=== PATIENT | female | born 1940 | race Asian ===

== ENCOUNTER 2018-06-28 15:51 | Inpatient (IN) | payer MEDICARE, OTHER ==
[2018-06-28 19:41] LABS: ADD MAN DIFF? NO
[2018-06-28 19:42] LABS: WHITE BLOOD COUNT 6.1 10^3/ul (4.8-10.8)
[2018-06-28 19:42] LABS: BASOPHILS % 0.3 % (0.0-2.0); EOSINOPHILS % 0.7 % (0.0-7.0); HEMATOCRIT 29.9 % (37.0-47.0); LYMPHOCYTES # 0.6 10^3/ul (0.8-2.9); LYMPHOCYTES % 10.4 % (15.0-51.0); MEAN CORPUSCULAR HGB CONC 30.1 g/dl (32.0-37.0); MEAN CORPUSCULAR VOLUME 96.5 fl (82.0-101.0); MONOCYTE # 0.8 10^3/ul (0.3-0.9); MONOCYTES % 12.7 % (0.0-11.0); NEUTROPHIL # 4.6 10^3/ul (1.6-7.5); NEUTROPHILS % 75.6 % (39.0-77.0); PLATELET COUNT 255 10^3/UL (140-415); RED CELL DISTRIBUTION WIDTH 13.4 % (11.5-14.5)
[2018-06-28] MEDS: SOD CHLORIDE 0.9% 1,770 ML IV (19:46)
[2018-06-28 19:59] LABS: ALANINE AMINOTRANSFERASE 7 IU/L (13-69); ALKALINE PHOSPHATASE 115 IU/L (42-121); ANION GAP 8 (5-13); ASPARTATE AMINO TRANSFERASE 54 IU/L (15-46); BLOOD UREA NITROGEN 49 mg/dl (7-20); CALCIUM 9.4 mg/dl (8.4-10.2); CARBON DIOXIDE 26 mmol/L (21-31); CHLORIDE 104 mmol/L (97-110); GLUCOSE 107 mg/dl (70-220); POTASSIUM 4.4 mmol/L (3.5-5.1); SODIUM 138 mmol/L (135-144)
[2018-06-28 20:00] LABS: TOTAL PROTEIN 7.3 g/dl (6.1-8.1)
[2018-06-28 20:10] LABS: ALBUMIN/GLOBULIN RATIO 1.21
[2018-06-28 20:13] LABS: TROPONIN-I 0.154 ng/ml (0.000-0.120)
[2018-06-28 20:39] LABS: FREE THYROXINE INDEX (Calc) 2.48 ug/ml (0.65-3.89); T3 UPTAKE 33.1 % (23.5-40.5); T4 (THYROXINE) 7.5 ug/dl (5.5-11.0)
[2018-06-28 20:51] LABS: ADD UMIC YES; UR ASCORBIC ACID 40 mg/dL (NEGATIVE); UR BILIRUBIN (Dip) NEGATIVE (NEGATIVE); UR BLOOD (Dip) NEGATIVE (NEGATIVE); UR CLARITY SLIGHTLY CLOUDY (CLEAR); UR COLOR YELLOW (YELLOW); UR GLUCOSE (Dip) NEGATIVE (NEGATIVE); UR KETONES (Dip) TRACE mg/dL (NEGATIVE); UR LEUKOCYTE ESTERASE (Dip) TRACE Leu/ul (NEGATIVE); UR MUCUS FEW /HPF (NONE SEEN); UR NITRITE (Dip) NEGATIVE (NEGATIVE); UR RBC 2 /HPF (0-5); UR SPECIFIC GRAVITY (Dip) 1.018 (1.003-1.030); UR TOTAL PROTEIN (Dip) NEGATIVE (NEGATIVE); UR UROBILINOGEN (Dip) 1+ mg/dL (NEGATIVE); UR WBC 8 /HPF (0-5)
[2018-06-28] MEDS: SOD CHLORIDE 0.9% 1,000 ML IV (20:52)
[2018-06-28] MEDS ORDERED: ACETAMINOPHEN 325 MG TAB PO (21:00)
[2018-06-28] MEDS ORDERED: NITROGLYCERIN (SL) 0.4 MG TAB SL (21:00)
[2018-06-28] MEDS ORDERED: BISACODYL (EC) 5 MG TAB PO (21:00)
[2018-06-28] MEDS ORDERED: ONDANSETRON 4 MG INJ IV (21:00)
[2018-06-28] MEDS ORDERED: NACL 0.9% 3 ML SYG IV (21:00)
[2018-06-28] MEDS ORDERED: DOCUSATE SODIUM 100 MG CAP PO (21:00)
[2018-06-28] MEDS: ASPIRIN 81 MG TAB PO (21:05)
[2018-06-28] MEDS: PRAMIPEXOLE 1 MG TAB PO (22:30)
[2018-06-28] MEDS: ATORVASTATIN 10 MG TAB PO (22:33)
[2018-06-28] MEDS: CARBIDOPA/LEVODOPA (25/100) TAB PO (22:34)
[2018-06-28] MEDS: HEPARIN 5,000 UNIT/1 ML VIAL SC (23:15)
[2018-06-28] MEDS: CEFTRIAXONE 1 GM/50 ML (PMX) 50 ML IVPB (23:40)
[2018-06-28 23:45] LABS: LACTIC ACID 1.1 mmol/L (0.5-2.0)
[2018-06-29 00:11] LABS: INR 0.96; PROTIME 12.9 Sec (11.9-14.9)
[2018-06-29 00:12] LABS: PARTIAL THROMBOPLASTIN TIME 33.5 Sec (23.0-35.0)
[2018-06-29] MEDS: SOD CHLORIDE 0.9% 1,000 ML IV ×2 (00:30→13:10)
[2018-06-29] MEDS: IOHEXOL 14.3 MG(I)/ML (ADULT) BTL PO (00:30)
[2018-06-29] MEDS: IODIXANOL LOCM 100 ML BTL (00:44)
[2018-06-29] MEDS: SOD CHLORIDE 0.9% 100 ML (00:44)
[2018-06-29 01:08] LABS: ADD MAN DIFF? NO; BASOPHILS % 0.3 % (0.0-2.0); EOSINOPHILS # 0.1 10^3/ul (0.0-0.5); EOSINOPHILS % 1.5 % (0.0-7.0); HEMATOCRIT 26.4 % (37.0-47.0); HEMOGLOBIN 7.9 g/dl (12.0-16.0); LYMPHOCYTES # 0.7 10^3/ul (0.8-2.9); LYMPHOCYTES % 11.7 % (15.0-51.0); MEAN CORPUSCULAR HEMOGLOBIN 29.4 pg (29.0-33.0); MEAN CORPUSCULAR HGB CONC 29.9 g/dl (32.0-37.0); MEAN CORPUSCULAR VOLUME 98.1 fl (82.0-101.0); MEAN PLATELET VOLUME 8.9 fl (7.4-10.4); MONOCYTE # 0.8 10^3/ul (0.3-0.9); MONOCYTES % 14.1 % (0.0-11.0); NEUTROPHIL # 4.2 10^3/ul (1.6-7.5); NEUTROPHILS % 72.2 % (39.0-77.0); PLATELET COUNT 224 10^3/UL (140-415); RED BLOOD COUNT 2.69 10^6/ul (4.20-5.40); RED CELL DISTRIBUTION WIDTH 13.4 % (11.5-14.5)
[2018-06-29 01:08] LABS: WHITE BLOOD COUNT 5.9 10^3/ul (4.8-10.8)
[2018-06-29 01:34] LABS: CREATINE KINASE 319 IU/L (23-200)
[2018-06-29 01:46] LABS: CK INDEX 0.9; CK-MB 2.91 ng/ml (0.0-2.4)
[2018-06-29 01:54] LABS: TROPONIN-I 0.147 ng/ml (0.000-0.120)
[2018-06-29 04:51] LABS: ADD MAN DIFF? NO
[2018-06-29 04:55] LABS: WHITE BLOOD COUNT 4.6 10^3/ul (4.8-10.8)
[2018-06-29 04:55] LABS: BASOPHILS % 0.4 % (0.0-2.0); EOSINOPHILS # 0.1 10^3/ul (0.0-0.5); EOSINOPHILS % 1.7 % (0.0-7.0); HEMATOCRIT 27.8 % (37.0-47.0); HEMOGLOBIN 8.5 g/dl (12.0-16.0); LYMPHOCYTES # 0.7 10^3/ul (0.8-2.9); LYMPHOCYTES % 14.4 % (15.0-51.0); MEAN CORPUSCULAR HEMOGLOBIN 29.5 pg (29.0-33.0); MEAN CORPUSCULAR HGB CONC 30.6 g/dl (32.0-37.0); MEAN CORPUSCULAR VOLUME 96.5 fl (82.0-101.0); MEAN PLATELET VOLUME 8.7 fl (7.4-10.4); MONOCYTE # 0.5 10^3/ul (0.3-0.9); MONOCYTES % 11.5 % (0.0-11.0); NEUTROPHIL # 3.3 10^3/ul (1.6-7.5); NEUTROPHILS % 71.8 % (39.0-77.0); PLATELET COUNT 236 10^3/UL (140-415); RED BLOOD COUNT 2.88 10^6/ul (4.20-5.40); RED CELL DISTRIBUTION WIDTH 13.2 % (11.5-14.5)
[2018-06-29 05:15] LABS: INR 0.92; PROTIME 12.5 Sec (11.9-14.9)
[2018-06-29 05:16] LABS: PARTIAL THROMBOPLASTIN TIME 35.9 Sec (23.0-35.0)
[2018-06-29 05:44] LABS: ALANINE AMINOTRANSFERASE 8 IU/L (13-69); ALBUMIN 3.3 g/dl (3.3-4.9); ALBUMIN/GLOBULIN RATIO 1.13; ALKALINE PHOSPHATASE 110 IU/L (42-121); ANION GAP 7 (5-13); ASPARTATE AMINO TRANSFERASE 41 IU/L (15-46); BLOOD UREA NITROGEN 33 mg/dl (7-20); CALCIUM 8.8 mg/dl (8.4-10.2); CARBON DIOXIDE 23 mmol/L (21-31); CHLORIDE 111 mmol/L (97-110); CHOL/HDL RATIO 2.1 RATIO; CHOLESTEROL 124 mg/dl (100-200); CREATININE 1.14 mg/dl (0.44-1.00); GLUCOSE 89 mg/dl (70-220); HDL CHOLESTEROL 57 mg/dl (33-92); LDL CHOLESTEROL,CALCULATED 44 mg/dl; POTASSIUM 4.2 mmol/L (3.5-5.1); SODIUM 141 mmol/L (135-144); TOTAL PROTEIN 6.2 g/dl (6.1-8.1); TRIGLYCERIDES 116 mg/dl (0-149)
[2018-06-29 05:48] LABS: CREATINE KINASE 335 IU/L (23-200)
[2018-06-29 05:52] LABS: CK-MB 3.29 ng/ml (0.0-2.4)
[2018-06-29] MEDS: hydrALAzine 20 MG INJ IV (06:13)
[2018-06-29 06:15] LABS: HEMOGLOBIN A1C 6.1 % (0-5.9)
[2018-06-29] MEDS: PRAMIPEXOLE 1 MG TAB PO (10:00)
[2018-06-29 10:01] LABS: ADD MAN DIFF? NO
[2018-06-29] MEDS: CARBIDOPA/LEVODOPA (25/100) TAB PO ×4 (10:01→20:48)
[2018-06-29] MEDS: AMLODIPINE 5 MG TAB PO (10:01)
[2018-06-29 10:05] LABS: BASOPHILS % 0.3 % (0.0-2.0); EOSINOPHILS # 0.1 10^3/ul (0.0-0.5); EOSINOPHILS % 0.9 % (0.0-7.0); HEMATOCRIT 29.4 % (37.0-47.0); LYMPHOCYTES # 0.6 10^3/ul (0.8-2.9); LYMPHOCYTES % 11.2 % (15.0-51.0); MEAN CORPUSCULAR HEMOGLOBIN 29.1 pg (29.0-33.0); MEAN CORPUSCULAR HGB CONC 30.6 g/dl (32.0-37.0); MEAN CORPUSCULAR VOLUME 95.1 fl (82.0-101.0); MEAN PLATELET VOLUME 8.9 fl (7.4-10.4); MONOCYTE # 0.6 10^3/ul (0.3-0.9); MONOCYTES % 10.5 % (0.0-11.0); NEUTROPHIL # 4.4 10^3/ul (1.6-7.5); NEUTROPHILS % 76.9 % (39.0-77.0); PLATELET COUNT 256 10^3/UL (140-415); RED BLOOD COUNT 3.09 10^6/ul (4.20-5.40); RED CELL DISTRIBUTION WIDTH 13.3 % (11.5-14.5)
[2018-06-29 10:05] LABS: WHITE BLOOD COUNT 5.7 10^3/ul (4.8-10.8)
[2018-06-29] MEDS: SOD CHLORIDE 0.9% 500 ML IV (10:05)
[2018-06-29 10:24] LABS: INR 0.93; PROTIME 12.6 Sec (11.9-14.9)
[2018-06-29 10:25] LABS: PARTIAL THROMBOPLASTIN TIME 34.1 Sec (23.0-35.0)
[2018-06-29 14:02] LABS: ADD MAN DIFF? NO
[2018-06-29 14:04] LABS: WHITE BLOOD COUNT 5.9 10^3/ul (4.8-10.8)
[2018-06-29 14:04] LABS: BASOPHILS % 0.3 % (0.0-2.0); EOSINOPHILS # 0.1 10^3/ul (0.0-0.5); HEMATOCRIT 30.9 % (37.0-47.0); HEMOGLOBIN 9.6 g/dl (12.0-16.0); LYMPHOCYTES # 0.7 10^3/ul (0.8-2.9); LYMPHOCYTES % 11.8 % (15.0-51.0); MEAN CORPUSCULAR HEMOGLOBIN 29.5 pg (29.0-33.0); MEAN CORPUSCULAR HGB CONC 31.1 g/dl (32.0-37.0); MEAN CORPUSCULAR VOLUME 95.1 fl (82.0-101.0); MEAN PLATELET VOLUME 8.7 fl (7.4-10.4); MONOCYTE # 0.5 10^3/ul (0.3-0.9); MONOCYTES % 8.8 % (0.0-11.0); NEUTROPHIL # 4.6 10^3/ul (1.6-7.5); NEUTROPHILS % 77.8 % (39.0-77.0); PLATELET COUNT 253 10^3/UL (140-415); RED BLOOD COUNT 3.25 10^6/ul (4.20-5.40); RED CELL DISTRIBUTION WIDTH 13.4 % (11.5-14.5)
[2018-06-29 14:21] LABS: INR 0.89; PROTIME 12.1 Sec (11.9-14.9); PT RATIO 0.9
[2018-06-29 14:22] LABS: PARTIAL THROMBOPLASTIN TIME 33.2 Sec (23.0-35.0)
[2018-06-29] MEDS: ATORVASTATIN 10 MG TAB PO (20:48)
[2018-06-30 05:21] LABS: ADD MAN DIFF? NO
[2018-06-30 05:22] LABS: BASOPHILS % 0.2 % (0.0-2.0); EOSINOPHILS % 0.7 % (0.0-7.0); HEMATOCRIT 28.8 % (37.0-47.0); HEMOGLOBIN 9.1 g/dl (12.0-16.0); LYMPHOCYTES # 0.7 10^3/ul (0.8-2.9); LYMPHOCYTES % 11.4 % (15.0-51.0); MEAN CORPUSCULAR HEMOGLOBIN 29.8 pg (29.0-33.0); MEAN CORPUSCULAR HGB CONC 31.6 g/dl (32.0-37.0); MEAN CORPUSCULAR VOLUME 94.4 fl (82.0-101.0); MEAN PLATELET VOLUME 8.9 fl (7.4-10.4); MONOCYTE # 0.9 10^3/ul (0.3-0.9); MONOCYTES % 14.4 % (0.0-11.0); NEUTROPHIL # 4.4 10^3/ul (1.6-7.5); PLATELET COUNT 241 10^3/UL (140-415); RED BLOOD COUNT 3.05 10^6/ul (4.20-5.40); RED CELL DISTRIBUTION WIDTH 13.4 % (11.5-14.5)
[2018-06-30 05:56] LABS: MAGNESIUM 1.9 mg/dl (1.7-2.5)
[2018-06-30 05:56] LABS: PHOSPHORUS 3.5 mg/dl (2.5-4.9)
[2018-06-30 06:04] LABS: ALANINE AMINOTRANSFERASE 9 IU/L (13-69); ALBUMIN 3.6 g/dl (3.3-4.9); ALBUMIN/GLOBULIN RATIO 1.05; ALKALINE PHOSPHATASE 113 IU/L (42-121); ANION GAP 7 (5-13); ASPARTATE AMINO TRANSFERASE 45 IU/L (15-46); BILIRUBIN,INDIRECT 0.1 mg/dl (0-1.1); BILIRUBIN,TOTAL 0.1 mg/dl (0.2-1.3); BLOOD UREA NITROGEN 20 mg/dl (7-20); CALCIUM 9.3 mg/dl (8.4-10.2); CARBON DIOXIDE 25 mmol/L (21-31); CHLORIDE 107 mmol/L (97-110); GLUCOSE 95 mg/dl (70-220); POTASSIUM 3.9 mmol/L (3.5-5.1); SODIUM 139 mmol/L (135-144)
[2018-06-30] MEDS: PRAMIPEXOLE 1 MG TAB PO (08:59)
[2018-06-30] MEDS: AMLODIPINE 5 MG TAB PO (09:00)
[2018-06-30] MEDS: CARBIDOPA/LEVODOPA (25/100) TAB PO ×4 (09:00→20:36)
[2018-06-30] MEDS: ACETAMINOPHEN 325 MG TAB PO ×2 (09:01→20:36)
[2018-06-30 10:22] LABS: TROPONIN-I 0.072 ng/ml (0.000-0.120)
[2018-06-30 11:06] LABS: HEPATITIS B SURFACE ANTIGEN NEGATIVE (NEGATIVE)
[2018-06-30 11:24] LABS: HEPATITIS B SURFACE ANTIBODY POSITIVE (NEGATIVE)
[2018-06-30 11:24] LABS: HEPATITIS C VIRAL ANTIBODY NEGATIVE (NEGATIVE)
[2018-06-30 11:45] LABS: IRON 29 ug/dl (35-150)
[2018-06-30 11:54] LABS: % IRON SATURATION 9 % SAT (22-52); TOTAL IRON BINDING CAPACITY 309 ug/dl (241-421)
[2018-06-30 13:28] LABS: FERRITIN 25.8 ng/ml (11.1-264.0)
[2018-06-30] MEDS: ATORVASTATIN 10 MG TAB PO (20:36)
[2018-06-30 21:34] LABS: LACTIC ACID 0.9 mmol/L (0.5-2.0)
[2018-06-30] MEDS ORDERED: VANCOMYCIN IV PER PHARMACY XX (23:00)
[2018-07-01] MEDS: PIPER-TAZO 3.375 GM IV (PMX) 100 ML IVPB ×5 (00:09→23:01)
[2018-07-01] MEDS: VANCOMYCIN HCL 1.25 GM in SOD CHLORIDE 0.9% 250 ML IVPB (01:12)
[2018-07-01 05:26] LABS: ADD MAN DIFF? NO
[2018-07-01 05:33] LABS: ABNORMAL IP MESSAGE 1; BASOPHILS % 0.2 % (0.0-2.0); EOSINOPHILS % 0.2 % (0.0-7.0); HEMOGLOBIN 8.9 g/dl (12.0-16.0); LYMPHOCYTES # 0.6 10^3/ul (0.8-2.9); MEAN CORPUSCULAR HEMOGLOBIN 29.9 pg (29.0-33.0); MEAN CORPUSCULAR HGB CONC 31.8 g/dl (32.0-37.0); MEAN PLATELET VOLUME 8.9 fl (7.4-10.4); MONOCYTE # 1.2 10^3/ul (0.3-0.9); MONOCYTES % 14.7 % (0.0-11.0); NEUTROPHIL # 6.5 10^3/ul (1.6-7.5); NEUTROPHILS % 77.5 % (39.0-77.0); PLATELET COUNT 241 10^3/UL (140-415); RED BLOOD COUNT 2.98 10^6/ul (4.20-5.40); RED CELL DISTRIBUTION WIDTH 13.3 % (11.5-14.5)
[2018-07-01 05:33] LABS: WHITE BLOOD COUNT 8.3 10^3/ul (4.8-10.8)
[2018-07-01 05:56] LABS: POSITIVE DIFF @See below
[2018-07-01 06:19] LABS: ALANINE AMINOTRANSFERASE 9 IU/L (13-69); ALBUMIN 3.5 g/dl (3.3-4.9); ALBUMIN/GLOBULIN RATIO 0.97; ALKALINE PHOSPHATASE 102 IU/L (42-121); ANION GAP 5 (5-13); ASPARTATE AMINO TRANSFERASE 35 IU/L (15-46); BILIRUBIN,INDIRECT 0.2 mg/dl (0-1.1); BILIRUBIN,TOTAL 0.2 mg/dl (0.2-1.3); BLOOD UREA NITROGEN 20 mg/dl (7-20); CALCIUM 9.1 mg/dl (8.4-10.2); CARBON DIOXIDE 26 mmol/L (21-31); CHLORIDE 108 mmol/L (97-110); CREATININE 1.21 mg/dl (0.44-1.00); GLUCOSE 113 mg/dl (70-220); POTASSIUM 3.7 mmol/L (3.5-5.1); SODIUM 139 mmol/L (135-144); TOTAL PROTEIN 7.1 g/dl (6.1-8.1)
[2018-07-01] MEDS: PRAMIPEXOLE 1 MG TAB PO (08:12)
[2018-07-01] MEDS: CARBIDOPA/LEVODOPA (25/100) TAB PO ×4 (08:12→20:04)
[2018-07-01] MEDS: AMLODIPINE 5 MG TAB PO (08:13)
[2018-07-01] MEDS: SOD CHLORIDE 0.9% 1,000 ML IV ×2 (10:54→19:55)
[2018-07-01 13:21] LABS: ADD UMIC YES; UR ASCORBIC ACID NEGATIVE (NEGATIVE); UR BACTERIA MODERATE /HPF (NONE SEEN); UR BILIRUBIN (Dip) NEGATIVE (NEGATIVE); UR BLOOD (Dip) 2+ mg/dL (NEGATIVE); UR BUDDING YEAST MANY /HPF (NONE SEEN); UR CLARITY CLOUDY (CLEAR); UR COLOR AMBER (YELLOW); UR GLUCOSE (Dip) NEGATIVE (NEGATIVE); UR KETONES (Dip) TRACE mg/dL (NEGATIVE); UR LEUKOCYTE ESTERASE (Dip) 3+ Leu/ul (NEGATIVE); UR MUCUS MANY /HPF (NONE SEEN); UR NITRITE (Dip) NEGATIVE (NEGATIVE); UR RBC 40 /HPF (0-5); UR SPECIFIC GRAVITY (Dip) 1.025 (1.003-1.030); UR SQUAMOUS EPITHELIAL CELL FEW /HPF (FEW); UR TOTAL PROTEIN (Dip) NEGATIVE (NEGATIVE); UR UROBILINOGEN (Dip) NEGATIVE (NEGATIVE); UR WBC 14 /HPF (0-5)
[2018-07-01 14:36] LABS: CARCINOEMBRYONIC ANTIGEN 6.3 ng/ml (0.0-5.0)
[2018-07-01 14:36] LABS: CANCER ANTIGEN 125 39.9 U/ml (0.0-35.0)
[2018-07-01 14:40] LABS: CANCER ANTIGEN 19-9 11.7 U/ml (0.0-37.0)
[2018-07-01] MEDS: ATORVASTATIN 10 MG TAB PO (20:04)
[2018-07-02] MEDS: PIPER-TAZO 3.375 GM IV (PMX) 100 ML IVPB ×3 (05:20→17:25)
[2018-07-02] MEDS: SOD CHLORIDE 0.9% 1,000 ML IV ×2 (05:32→16:17)
[2018-07-02 06:17] LABS: ADD MAN DIFF? NO
[2018-07-02 06:22] LABS: BASOPHILS % 0.3 % (0.0-2.0); EOSINOPHILS # 0.1 10^3/ul (0.0-0.5); EOSINOPHILS % 1.5 % (0.0-7.0); HEMATOCRIT 28.8 % (37.0-47.0); HEMOGLOBIN 8.8 g/dl (12.0-16.0); LYMPHOCYTES # 0.7 10^3/ul (0.8-2.9); LYMPHOCYTES % 10.6 % (15.0-51.0); MEAN CORPUSCULAR HEMOGLOBIN 28.9 pg (29.0-33.0); MEAN CORPUSCULAR HGB CONC 30.6 g/dl (32.0-37.0); MEAN CORPUSCULAR VOLUME 94.7 fl (82.0-101.0); MEAN PLATELET VOLUME 8.6 fl (7.4-10.4); MONOCYTES % 14.9 % (0.0-11.0); NEUTROPHIL # 4.9 10^3/ul (1.6-7.5); NEUTROPHILS % 72.3 % (39.0-77.0); PLATELET COUNT 242 10^3/UL (140-415); RED BLOOD COUNT 3.04 10^6/ul (4.20-5.40)
[2018-07-02 06:22] LABS: WHITE BLOOD COUNT 6.8 10^3/ul (4.8-10.8)
[2018-07-02 06:51] LABS: ALANINE AMINOTRANSFERASE 6 IU/L (13-69); ALBUMIN 3.5 g/dl (3.3-4.9); ALKALINE PHOSPHATASE 107 IU/L (42-121); ANION GAP 9 (5-13); ASPARTATE AMINO TRANSFERASE 32 IU/L (15-46); BILIRUBIN,INDIRECT 0.3 mg/dl (0-1.1); BILIRUBIN,TOTAL 0.3 mg/dl (0.2-1.3); BLOOD UREA NITROGEN 15 mg/dl (7-20); CARBON DIOXIDE 25 mmol/L (21-31); CHLORIDE 106 mmol/L (97-110); GLUCOSE 98 mg/dl (70-220); POTASSIUM 3.6 mmol/L (3.5-5.1); SODIUM 140 mmol/L (135-144)
[2018-07-02 06:53] LABS: PHOSPHORUS 3.3 mg/dl (2.5-4.9)
[2018-07-02 06:53] LABS: MAGNESIUM 1.9 mg/dl (1.7-2.5)
[2018-07-02] MEDS: CARBIDOPA/LEVODOPA (25/100) TAB PO ×4 (08:18→20:34)
[2018-07-02] MEDS: AMLODIPINE 5 MG TAB PO (08:18)
[2018-07-02] MEDS: PRAMIPEXOLE 1 MG TAB PO (08:18)
[2018-07-02] MEDS: ACETAMINOPHEN 325 MG TAB PO (12:01)
[2018-07-02] MEDS: ATORVASTATIN 10 MG TAB PO (20:34)
[2018-07-03] MEDS: PIPER-TAZO 3.375 GM IV (PMX) 100 ML IVPB ×5 (00:35→23:29)
[2018-07-03] MEDS: SOD CHLORIDE 0.9% 1,000 ML IV ×3 (02:30→14:38)
[2018-07-03 05:15] LABS: ADD MAN DIFF? NO
[2018-07-03 05:23] LABS: ABNORMAL IP MESSAGE 1; BASOPHILS % 0.3 % (0.0-2.0); EOSINOPHILS # 0.1 10^3/ul (0.0-0.5); HEMATOCRIT 28.6 % (37.0-47.0); HEMOGLOBIN 8.8 g/dl (12.0-16.0); LYMPHOCYTES # 0.4 10^3/ul (0.8-2.9); LYMPHOCYTES % 6.1 % (15.0-51.0); MEAN CORPUSCULAR HEMOGLOBIN 29.2 pg (29.0-33.0); MEAN CORPUSCULAR HGB CONC 30.8 g/dl (32.0-37.0); MEAN PLATELET VOLUME 8.9 fl (7.4-10.4); MONOCYTE # 0.9 10^3/ul (0.3-0.9); MONOCYTES % 12.4 % (0.0-11.0); NEUTROPHIL # 5.7 10^3/ul (1.6-7.5); NEUTROPHILS % 79.9 % (39.0-77.0); PLATELET COUNT 268 10^3/UL (140-415); RED BLOOD COUNT 3.01 10^6/ul (4.20-5.40)
[2018-07-03 05:23] LABS: WHITE BLOOD COUNT 7.2 10^3/ul (4.8-10.8)
[2018-07-03 05:25] LABS: ALANINE AMINOTRANSFERASE 8 IU/L (13-69); ALBUMIN 3.5 g/dl (3.3-4.9); ALKALINE PHOSPHATASE 101 IU/L (42-121); ANION GAP 8 (5-13); ASPARTATE AMINO TRANSFERASE 39 IU/L (15-46); BILIRUBIN,INDIRECT 0.2 mg/dl (0-1.1); BILIRUBIN,TOTAL 0.2 mg/dl (0.2-1.3); BLOOD UREA NITROGEN 11 mg/dl (7-20); CALCIUM 8.8 mg/dl (8.4-10.2); CARBON DIOXIDE 26 mmol/L (21-31); CHLORIDE 105 mmol/L (97-110); CREATININE 1.05 mg/dl (0.44-1.00); GLUCOSE 117 mg/dl (70-220); POTASSIUM 3.5 mmol/L (3.5-5.1); SODIUM 139 mmol/L (135-144)
[2018-07-03 06:10] LABS: POSITIVE DIFF @See below
[2018-07-03] MEDS: FLUCONAZOLE 100 MG TAB PO (08:29)
[2018-07-03] MEDS: AMLODIPINE 5 MG TAB PO (08:30)
[2018-07-03] MEDS: CARBIDOPA/LEVODOPA (25/100) TAB PO ×4 (08:30→21:09)
[2018-07-03] MEDS: PRAMIPEXOLE 1 MG TAB PO (08:30)
[2018-07-03] MEDS: ACETAMINOPHEN 325 MG TAB PO ×2 (16:10→23:31)
[2018-07-03] MEDS: ATORVASTATIN 10 MG TAB PO (21:08)
[2018-07-04] MEDS: PIPER-TAZO 3.375 GM IV (PMX) 100 ML IVPB ×4 (05:29→23:29)
[2018-07-04] MEDS: SOD CHLORIDE 0.9% 1,000 ML IV (05:30)
[2018-07-04 05:57] LABS: ADD MAN DIFF? NO
[2018-07-04 06:14] LABS: BASOPHILS % 0.3 % (0.0-2.0); EOSINOPHILS # 0.1 10^3/ul (0.0-0.5); HEMATOCRIT 30.9 % (37.0-47.0); HEMOGLOBIN 9.6 g/dl (12.0-16.0); LYMPHOCYTES # 0.7 10^3/ul (0.8-2.9); LYMPHOCYTES % 9.3 % (15.0-51.0); MEAN CORPUSCULAR HGB CONC 31.1 g/dl (32.0-37.0); MEAN CORPUSCULAR VOLUME 93.4 fl (82.0-101.0); MEAN PLATELET VOLUME 8.9 fl (7.4-10.4); MONOCYTE # 1.1 10^3/ul (0.3-0.9); MONOCYTES % 15.3 % (0.0-11.0); NEUTROPHIL # 5.1 10^3/ul (1.6-7.5); NEUTROPHILS % 73.7 % (39.0-77.0); PLATELET COUNT 321 10^3/UL (140-415); RED BLOOD COUNT 3.31 10^6/ul (4.20-5.40); RED CELL DISTRIBUTION WIDTH 12.9 % (11.5-14.5)
[2018-07-04 06:27] LABS: MAGNESIUM 1.7 mg/dl (1.7-2.5)
[2018-07-04 06:27] LABS: PHOSPHORUS 3.3 mg/dl (2.5-4.9)
[2018-07-04 06:35] LABS: ALBUMIN 3.7 g/dl (3.3-4.9); ALBUMIN/GLOBULIN RATIO 0.94; ALKALINE PHOSPHATASE 106 IU/L (42-121); ANION GAP 10 (5-13); ASPARTATE AMINO TRANSFERASE 29 IU/L (15-46); BILIRUBIN,INDIRECT 0.4 mg/dl (0-1.1); BILIRUBIN,TOTAL 0.4 mg/dl (0.2-1.3); BLOOD UREA NITROGEN 9 mg/dl (7-20); CALCIUM 9.1 mg/dl (8.4-10.2); CARBON DIOXIDE 25 mmol/L (21-31); CHLORIDE 105 mmol/L (97-110); CREATININE 0.95 mg/dl (0.44-1.00); GLUCOSE 90 mg/dl (70-220); POTASSIUM 3.4 mmol/L (3.5-5.1); SODIUM 140 mmol/L (135-144); TOTAL PROTEIN 7.6 g/dl (6.1-8.1)
[2018-07-04 06:37] LABS: ALANINE AMINOTRANSFERASE < 6 IU/L (13-69)
[2018-07-04] MEDS: FLUCONAZOLE 100 MG TAB PO (07:50)
[2018-07-04] MEDS: PRAMIPEXOLE 1 MG TAB PO (07:50)
[2018-07-04] MEDS: ACETAMINOPHEN 325 MG TAB PO (07:50)
[2018-07-04] MEDS: CARBIDOPA/LEVODOPA (25/100) TAB PO ×4 (07:51→21:00)
[2018-07-04] MEDS: AMLODIPINE 5 MG TAB PO (07:51)
[2018-07-04] MEDS: POTASSIUM CHLORIDE (SR) 20 MEQ TAB PO (11:59)
[2018-07-04] MEDS: MAGNESIUM SULFATE 1 GM/D5W 100 ML IVPB (13:39)
[2018-07-04] MEDS: ATORVASTATIN 10 MG TAB PO (21:00)
[2018-07-04] MEDS: HYDROCODONE/APAP (5/325) TAB PO (23:28)
[2018-07-05] MEDS: PIPER-TAZO 3.375 GM IV (PMX) 100 ML IVPB ×4 (05:44→23:17)
[2018-07-05] MEDS: CARBIDOPA/LEVODOPA (25/100) TAB PO ×4 (08:32→21:07)
[2018-07-05] MEDS: AMLODIPINE 5 MG TAB PO (08:32)
[2018-07-05] MEDS: PRAMIPEXOLE 1 MG TAB PO (08:32)
[2018-07-05] MEDS: FLUCONAZOLE 100 MG TAB PO (08:32)
[2018-07-05] MEDS: ATORVASTATIN 10 MG TAB PO (21:07)
[2018-07-06] MEDS: HYDROCODONE/APAP (5/325) TAB PO (04:34)
[2018-07-06] MEDS: PIPER-TAZO 3.375 GM IV (PMX) 100 ML IVPB ×4 (05:49→23:33)
[2018-07-06 08:26] LABS: PHOSPHORUS 3.3 mg/dl (2.5-4.9)
[2018-07-06 08:26] LABS: MAGNESIUM 1.9 mg/dl (1.7-2.5)
[2018-07-06] MEDS: CARBIDOPA/LEVODOPA (25/100) TAB PO ×4 (08:54→20:08)
[2018-07-06] MEDS: FLUCONAZOLE 100 MG TAB PO (08:54)
[2018-07-06] MEDS: AMLODIPINE 5 MG TAB PO (08:54)
[2018-07-06] MEDS: PRAMIPEXOLE 1 MG TAB PO (08:55)
[2018-07-06] MEDS: ACETAMINOPHEN 325 MG TAB PO (12:50)
[2018-07-06] MEDS: ATORVASTATIN 10 MG TAB PO (20:08)
[2018-07-06] MEDS: SOD CHLORIDE 0.9% 1,000 ML IV (22:11)
[2018-07-07] MEDS: ACETAMINOPHEN 325 MG TAB PO ×2 (00:30→20:16)
[2018-07-07] MEDS: SOD CHLORIDE 0.9% 1,000 ML IV ×2 (01:46→20:19)
[2018-07-07] MEDS: PIPER-TAZO 3.375 GM IV (PMX) 100 ML IVPB ×4 (05:26→23:57)
[2018-07-07] MEDS: PRAMIPEXOLE 1 MG TAB PO (08:53)
[2018-07-07] MEDS: FLUCONAZOLE 100 MG TAB PO (08:53)
[2018-07-07] MEDS: CARBIDOPA/LEVODOPA (25/100) TAB PO ×4 (08:53→20:17)
[2018-07-07] MEDS: AMLODIPINE 5 MG TAB PO (08:53)
[2018-07-07] MEDS: POTASSIUM CHLORIDE (SR) 20 MEQ TAB PO (09:41)
[2018-07-07 10:11] LABS: ABNORMAL IP MESSAGE 1; HEMATOCRIT 28.3 % (37.0-47.0); HEMOGLOBIN 8.8 g/dl (12.0-16.0); MEAN CORPUSCULAR HEMOGLOBIN 28.9 pg (29.0-33.0); MEAN CORPUSCULAR HGB CONC 31.1 g/dl (32.0-37.0); MEAN CORPUSCULAR VOLUME 92.8 fl (82.0-101.0); MEAN PLATELET VOLUME 8.3 fl (7.4-10.4); PLATELET COUNT 386 10^3/UL (140-415); RED BLOOD COUNT 3.05 10^6/ul (4.20-5.40); RED CELL DISTRIBUTION WIDTH 12.9 % (11.5-14.5)
[2018-07-07 10:11] LABS: WHITE BLOOD COUNT 7.3 10^3/ul (4.8-10.8)
[2018-07-07 10:16] LABS: ADD MAN DIFF? YES; POSITIVE DIFF @See below
[2018-07-07 11:09] LABS: ANISOCYTOSIS 1+ (0-0); BAND NEUTROPHILS % (M) 1 % (0-4); LYMPHOCYTES #M 0.5 10^3/ul (0.8-2.9); LYMPHOCYTES % (M) 7 % (15-51); MONOCYTES % (M) 14 % (0-11); PLATELET ESTIMATE NORMAL; POIKILOCYTOSIS 1+ (0-0); POLYCHROMASIA 2+ (0-0); REACTIVE LYMPHOCYTES% (M) 1 % (0-0); SEG NEUT #M 5.6 10^3/ul (1.6-7.5); SEGMENTED NEUTROPHILS (M) % 77 % (39-77)
[2018-07-07] MEDS: ATORVASTATIN 10 MG TAB PO (20:16)
[2018-07-08] MEDS: PIPER-TAZO 3.375 GM IV (PMX) 100 ML IVPB (05:29)
[2018-07-08] MEDS: PRAMIPEXOLE 1 MG TAB PO (08:32)
[2018-07-08] MEDS: FLUCONAZOLE 100 MG TAB PO (08:33)
[2018-07-08] MEDS: CARBIDOPA/LEVODOPA (25/100) TAB PO ×4 (08:33→20:19)
[2018-07-08] MEDS: AMLODIPINE 5 MG TAB PO (08:33)
[2018-07-08] MEDS: SOD CHLORIDE 0.9% 1,000 ML IV (16:31)
[2018-07-08] MEDS: ATORVASTATIN 10 MG TAB PO (20:19)
[2018-07-08] MEDS: ACETAMINOPHEN 325 MG TAB PO (23:57)
[2018-07-09] MEDS: CARBIDOPA/LEVODOPA (25/100) TAB PO ×3 (08:22→16:31)
[2018-07-09] MEDS: PRAMIPEXOLE 1 MG TAB PO (08:22)
[2018-07-09] MEDS: FLUCONAZOLE 100 MG TAB PO (08:22)
[2018-07-09] MEDS: AMLODIPINE 5 MG TAB PO (08:23)
[2018-07-09] MEDS: SOD CHLORIDE 0.9% 1,000 ML IV (08:28)
[2018-07-09] MEDS: ACETAMINOPHEN 325 MG TAB PO (09:27)
[2018-07-09 12:02] LABS: ADD UMIC YES; UR ASCORBIC ACID NEGATIVE (NEGATIVE); UR BILIRUBIN (Dip) NEGATIVE (NEGATIVE); UR BLOOD (Dip) 1+ mg/dL (NEGATIVE); UR CLARITY CLEAR (CLEAR); UR COLOR YELLOW (YELLOW); UR GLUCOSE (Dip) NEGATIVE (NEGATIVE); UR KETONES (Dip) NEGATIVE (NEGATIVE); UR LEUKOCYTE ESTERASE (Dip) NEGATIVE Leu/ul (NEGATIVE); UR NITRITE (Dip) NEGATIVE (NEGATIVE); UR RBC 1 /HPF (0-5); UR SPECIFIC GRAVITY (Dip) 1.013 (1.003-1.030); UR TOTAL PROTEIN (Dip) NEGATIVE (NEGATIVE); UR UROBILINOGEN (Dip) NEGATIVE (NEGATIVE); UR WBC 1 /HPF (0-5)
[2018-07-09] MEDS: ONDANSETRON 4 MG INJ IV (15:49)
== END 2018-07-09 17:55 | DRG 441 ==
LOC: ICU 06-29 05:45 → E/R 15:51 → 6WM 06-29 15:07
DX: R16.0 Hepatomegaly, not elsewhere classified (principal); I21.4 Non-ST elevation (NSTEMI) myocardial infarction; S22.32XA Fracture of one rib, left side, initial encounter for closed fracture; N17.9 Acute kidney failure, unspecified; B37.49 Other urogenital candidiasis; D64.9 Anemia, unspecified; G20 Parkinson's disease; W06.XXXA Fall from bed, initial encounter; K76.89 Other specified diseases of liver; M19.011 Primary osteoarthritis, right shoulder; M24.811 Other specific joint derangements of right shoulder, not elsewhere classified; E87.6 Hypokalemia
CPT/HCPCS: 36415; 70450; 71045; 71250; 73030-RT; 74176; 74177; 74182; 80053; 80061; 81001; 82105; 82378; 82550; 82553; 82728; 82962; 83036; 83540; 83605; 83735; 84100; 84436; 84443; 84479; 84484; 85025; 85610; 85730; 86301; 86304; 86706; 86803; 86850; 86900; 86901; 86920; 87040; 87070; 87081; 87086; 87340; 93005; 93306; 97110; 97162; 97530; 99285-25

== ENCOUNTER 2018-07-31 17:50 | Inpatient (IN) | payer MEDICARE, OTHER ==
[2018-07-31 18:23] LABS: ADD MAN DIFF? NO
[2018-07-31 18:31] LABS: ABNORMAL IP MESSAGE 1; BASOPHIL # 0.1 10^3/ul (0.0-0.1); BASOPHILS % 0.5 % (0.0-2.0); EOSINOPHILS # 0.1 10^3/ul (0.0-0.5); EOSINOPHILS % 0.8 % (0.0-7.0); HEMATOCRIT 28.8 % (37.0-47.0); HEMOGLOBIN 8.9 g/dl (12.0-16.0); LYMPHOCYTES # 0.6 10^3/ul (0.8-2.9); LYMPHOCYTES % 5.5 % (15.0-51.0); MEAN CORPUSCULAR HEMOGLOBIN 27.7 pg (29.0-33.0); MEAN CORPUSCULAR HGB CONC 30.9 g/dl (32.0-37.0); MEAN CORPUSCULAR VOLUME 89.7 fl (82.0-101.0); MONOCYTE # 0.4 10^3/ul (0.3-0.9); NEUTROPHIL # 9.4 10^3/ul (1.6-7.5); NEUTROPHILS % 88.6 % (39.0-77.0); PLATELET COUNT 427 10^3/UL (140-415); RED BLOOD COUNT 3.21 10^6/ul (4.20-5.40); RED CELL DISTRIBUTION WIDTH 13.8 % (11.5-14.5)
[2018-07-31 18:31] LABS: WHITE BLOOD COUNT 10.6 10^3/ul (4.8-10.8)
[2018-07-31] MEDS: CEFEPIME 2GM/50 ML (PMX) 50 ML IVPB (18:45)
[2018-07-31] MEDS: SODIUM CHLORIDE 0.9% 1L BAG IV* (18:46)
[2018-07-31 18:56] LABS: ALBUMIN/GLOBULIN RATIO 0.86; ALKALINE PHOSPHATASE 144 IU/L (42-121); ANION GAP 16 (5-13); BILIRUBIN,INDIRECT 0.2 mg/dl (0-1.1); BILIRUBIN,TOTAL 0.2 mg/dl (0.2-1.3); BLOOD UREA NITROGEN 21 mg/dl (7-20); CALCIUM 9.5 mg/dl (8.4-10.2); CARBON DIOXIDE 25 mmol/L (21-31); CHLORIDE 101 mmol/L (97-110); CREATININE 1.26 mg/dl (0.44-1.00); GLUCOSE 100 mg/dl (70-220); POTASSIUM 3.7 mmol/L (3.5-5.1); SODIUM 142 mmol/L (135-144); TOTAL PROTEIN 8.6 g/dl (6.1-8.1)
[2018-07-31 19:05] LABS: INR 1.06; PROTIME 13.9 Sec (11.9-14.9); PT RATIO 1.1
[2018-07-31 19:08] LABS: TROPONIN-I < 0.012 ng/ml (0.000-0.120)
[2018-07-31 19:25] LABS: ALANINE AMINOTRANSFERASE 51 IU/L (13-69)
[2018-07-31 19:38] LABS: ASPARTATE AMINO TRANSFERASE 39 IU/L (15-46)
[2018-07-31] MEDS: ACETAMINOPHEN 325 MG TAB PO (20:06)
[2018-07-31] MEDS: VANCOMYCIN 1 GM (PMX) 250 ML IVPB (20:06)
[2018-07-31 20:35] LABS: ADD UMIC YES; UR ASCORBIC ACID 40 mg/dL (NEGATIVE); UR BACTERIA FEW /HPF (NONE SEEN); UR BILIRUBIN (Dip) NEGATIVE (NEGATIVE); UR BLOOD (Dip) 2+ mg/dL (NEGATIVE); UR CLARITY SLIGHTLY CLOUDY (CLEAR); UR COLOR YELLOW (YELLOW); UR GLUCOSE (Dip) NEGATIVE (NEGATIVE); UR KETONES (Dip) TRACE mg/dL (NEGATIVE); UR LEUKOCYTE ESTERASE (Dip) 2+ Leu/ul (NEGATIVE); UR MUCUS FEW /HPF (NONE SEEN); UR NITRITE (Dip) NEGATIVE (NEGATIVE); UR RBC 4 /HPF (0-5); UR SPECIFIC GRAVITY (Dip) 1.015 (1.003-1.030); UR SQUAMOUS EPITHELIAL CELL MODERATE /HPF (FEW); UR TOTAL PROTEIN (Dip) NEGATIVE (NEGATIVE); UR UROBILINOGEN (Dip) NEGATIVE (NEGATIVE); UR WBC 12 /HPF (0-5)
[2018-07-31 22:26] LABS: LACTIC ACID 0.8 mmol/L (0.5-2.0)
[2018-07-31] MEDS ORDERED: ONDANSETRON 4 MG INJ IV (22:30)
[2018-07-31] MEDS ORDERED: ACETAMINOPHEN 325 MG TAB PO (22:30)
[2018-08-01] MEDS ORDERED: ONDANSETRON 4 MG INJ IV (01:00)
[2018-08-01] MEDS ORDERED: NITROGLYCERIN (SL) 0.4 MG TAB SL (01:00)
[2018-08-01] MEDS ORDERED: NACL 0.9% 3 ML SYG IV (01:00)
[2018-08-01] MEDS ORDERED: BISACODYL 10 MG SUPP PR (01:00)
[2018-08-01] MEDS: HYDROCODONE/APAP (5/325) TAB PO ×3 (01:13→13:38)
[2018-08-01] MEDS: SOD CHLORIDE 0.9% 1,000 ML IV (01:13)
[2018-08-01 05:37] LABS: WHITE BLOOD COUNT 8.1 10^3/ul (4.8-10.8)
[2018-08-01 05:37] LABS: ADD MAN DIFF? NO; BASOPHIL # 0.1 10^3/ul (0.0-0.1); EOSINOPHILS # 0.2 10^3/ul (0.0-0.5); EOSINOPHILS % 1.8 % (0.0-7.0); HEMATOCRIT 31.5 % (37.0-47.0); HEMOGLOBIN 9.4 g/dl (12.0-16.0); LYMPHOCYTES # 0.9 10^3/ul (0.8-2.9); LYMPHOCYTES % 11.4 % (15.0-51.0); MEAN CORPUSCULAR HEMOGLOBIN 27.1 pg (29.0-33.0); MEAN CORPUSCULAR HGB CONC 29.8 g/dl (32.0-37.0); MEAN CORPUSCULAR VOLUME 90.8 fl (82.0-101.0); MEAN PLATELET VOLUME 8.4 fl (7.4-10.4); MONOCYTE # 0.9 10^3/ul (0.3-0.9); MONOCYTES % 10.9 % (0.0-11.0); NEUTROPHIL # 6.1 10^3/ul (1.6-7.5); NEUTROPHILS % 74.7 % (39.0-77.0); PLATELET COUNT 449 10^3/UL (140-415); RED BLOOD COUNT 3.47 10^6/ul (4.20-5.40); RED CELL DISTRIBUTION WIDTH 14.1 % (11.5-14.5)
[2018-08-01 06:05] LABS: ALANINE AMINOTRANSFERASE 9 IU/L (13-69); ALBUMIN 3.9 g/dl (3.3-4.9); ALKALINE PHOSPHATASE 138 IU/L (42-121); ANION GAP 12 (5-13); ASPARTATE AMINO TRANSFERASE 40 IU/L (15-46); BILIRUBIN,INDIRECT 0.2 mg/dl (0-1.1); BILIRUBIN,TOTAL 0.2 mg/dl (0.2-1.3); BLOOD UREA NITROGEN 16 mg/dl (7-20); CALCIUM 9.4 mg/dl (8.4-10.2); CARBON DIOXIDE 24 mmol/L (21-31); CHLORIDE 105 mmol/L (97-110); CREATININE 1.03 mg/dl (0.44-1.00); GLUCOSE 92 mg/dl (70-220); MAGNESIUM 1.9 mg/dl (1.7-2.5); PHOSPHORUS 3.4 mg/dl (2.5-4.9); SODIUM 141 mmol/L (135-144); TOTAL PROTEIN 8.2 g/dl (6.1-8.1)
[2018-08-01] MEDS: MAGNESIUM HYDROXIDE 30ML CUP PO (08:48)
[2018-08-01] MEDS: CEFTRIAXONE 1 GM/50 ML (PMX) 50 ML IVPB (08:49)
[2018-08-01] MEDS: PRAMIPEXOLE 1 MG TAB PO (08:49)
[2018-08-01] MEDS: CARBIDOPA/LEVODOPA (25/100) TAB PO ×4 (08:49→21:31)
[2018-08-01] MEDS: AMLODIPINE 10 MG TAB PO (08:49)
[2018-08-01] MEDS: POTASSIUM CHLORIDE (SR) 20 MEQ TAB PO (16:38)
[2018-08-01] MEDS: 1/2 NS + KCL 20 MEQ 1,000 ML IV (16:38)
[2018-08-01] MEDS: ACETAMINOPHEN 325 MG TAB PO (18:32)
[2018-08-01] MEDS: DOCUSATE SODIUM 100 MG CAP PO (21:00)
[2018-08-01] MEDS: ATORVASTATIN 10 MG TAB PO (21:31)
[2018-08-01] MEDS: HEPARIN 5,000 UNIT/1 ML VIAL SC (21:36)
[2018-08-02] MEDS: ACETAMINOPHEN 325 MG TAB PO ×2 (00:51→21:55)
[2018-08-02 06:01] LABS: ADD MAN DIFF? NO
[2018-08-02 06:09] LABS: WHITE BLOOD COUNT 6.3 10^3/ul (4.8-10.8)
[2018-08-02 06:09] LABS: BASOPHIL # 0.1 10^3/ul (0.0-0.1); BASOPHILS % 0.8 % (0.0-2.0); EOSINOPHILS # 0.2 10^3/ul (0.0-0.5); HEMATOCRIT 28.3 % (37.0-47.0); HEMOGLOBIN 8.6 g/dl (12.0-16.0); LYMPHOCYTES # 0.8 10^3/ul (0.8-2.9); LYMPHOCYTES % 12.2 % (15.0-51.0); MEAN CORPUSCULAR HEMOGLOBIN 27.7 pg (29.0-33.0); MEAN CORPUSCULAR HGB CONC 30.4 g/dl (32.0-37.0); MEAN PLATELET VOLUME 8.4 fl (7.4-10.4); MONOCYTE # 0.8 10^3/ul (0.3-0.9); MONOCYTES % 12.6 % (0.0-11.0); NEUTROPHIL # 4.4 10^3/ul (1.6-7.5); NEUTROPHILS % 70.9 % (39.0-77.0); PLATELET COUNT 417 10^3/UL (140-415); RED BLOOD COUNT 3.11 10^6/ul (4.20-5.40)
[2018-08-02 06:21] LABS: ANION GAP 7 (5-13); BLOOD UREA NITROGEN 11 mg/dl (7-20); CALCIUM 9.3 mg/dl (8.4-10.2); CARBON DIOXIDE 27 mmol/L (21-31); CHLORIDE 104 mmol/L (97-110); CREATININE 1.02 mg/dl (0.44-1.00); GLUCOSE 96 mg/dl (70-220); PHOSPHORUS 2.9 mg/dl (2.5-4.9); POTASSIUM 3.4 mmol/L (3.5-5.1); SODIUM 138 mmol/L (135-144)
[2018-08-02] MEDS: 1/2 NS + KCL 20 MEQ 1,000 ML IV ×2 (07:33→12:16)
[2018-08-02] MEDS: CEFTRIAXONE 1 GM/50 ML (PMX) 50 ML IVPB (08:47)
[2018-08-02] MEDS: MAGNESIUM HYDROXIDE 30ML CUP PO (08:47)
[2018-08-02] MEDS: PRAMIPEXOLE 1 MG TAB PO (08:48)
[2018-08-02] MEDS: AMLODIPINE 10 MG TAB PO (08:48)
[2018-08-02] MEDS: CARBIDOPA/LEVODOPA (25/100) TAB PO ×4 (08:48→20:34)
[2018-08-02] MEDS: HEPARIN 5,000 UNIT/1 ML VIAL SC ×2 (08:50→20:38)
[2018-08-02] MEDS: HYDROCODONE/APAP (5/325) TAB PO (09:29)
[2018-08-02] MEDS: POTASSIUM CHLORIDE (SR) 20 MEQ TAB PO (13:35)
[2018-08-02] MEDS: ATORVASTATIN 10 MG TAB PO (20:34)
[2018-08-02] MEDS: DOCUSATE SODIUM 100 MG CAP PO (20:35)
[2018-08-03 06:00] LABS: ADD MAN DIFF? NO
[2018-08-03 06:08] LABS: BASOPHIL # 0.1 10^3/ul (0.0-0.1); BASOPHILS % 1.1 % (0.0-2.0); EOSINOPHILS # 0.1 10^3/ul (0.0-0.5); HEMATOCRIT 29.1 % (37.0-47.0); HEMOGLOBIN 8.9 g/dl (12.0-16.0); LYMPHOCYTES # 0.9 10^3/ul (0.8-2.9); LYMPHOCYTES % 14.5 % (15.0-51.0); MEAN CORPUSCULAR HEMOGLOBIN 27.6 pg (29.0-33.0); MEAN CORPUSCULAR HGB CONC 30.6 g/dl (32.0-37.0); MEAN CORPUSCULAR VOLUME 90.1 fl (82.0-101.0); MEAN PLATELET VOLUME 8.4 fl (7.4-10.4); MONOCYTE # 0.8 10^3/ul (0.3-0.9); MONOCYTES % 12.2 % (0.0-11.0); NEUTROPHIL # 4.6 10^3/ul (1.6-7.5); NEUTROPHILS % 69.9 % (39.0-77.0); PLATELET COUNT 451 10^3/UL (140-415); RED BLOOD COUNT 3.23 10^6/ul (4.20-5.40); RED CELL DISTRIBUTION WIDTH 14.1 % (11.5-14.5)
[2018-08-03 06:08] LABS: WHITE BLOOD COUNT 6.5 10^3/ul (4.8-10.8)
[2018-08-03 07:03] LABS: ANION GAP 10 (5-13); BLOOD UREA NITROGEN 11 mg/dl (7-20); CALCIUM 9.7 mg/dl (8.4-10.2); CARBON DIOXIDE 26 mmol/L (21-31); CHLORIDE 105 mmol/L (97-110); GLUCOSE 89 mg/dl (70-220); POTASSIUM 3.9 mmol/L (3.5-5.1); SODIUM 141 mmol/L (135-144)
[2018-08-03] MEDS: PRAMIPEXOLE 1 MG TAB PO (08:14)
[2018-08-03] MEDS: CEFTRIAXONE 1 GM/50 ML (PMX) 50 ML IVPB (08:15)
[2018-08-03] MEDS: AMLODIPINE 10 MG TAB PO (08:15)
[2018-08-03] MEDS: MAGNESIUM HYDROXIDE 30ML CUP PO (08:15)
[2018-08-03] MEDS: CARBIDOPA/LEVODOPA (25/100) TAB PO ×4 (08:15→21:39)
[2018-08-03] MEDS: HEPARIN 5,000 UNIT/1 ML VIAL SC ×2 (08:19→21:41)
[2018-08-03] MEDS ORDERED: ENOXAPARIN 30 MG/0.3 ML SYG SC (09:00)
[2018-08-03] MEDS: GUAIFENESIN/CODEINE 5ML CUP PO (18:22)
[2018-08-03] MEDS: ACETAMINOPHEN 325 MG TAB PO (20:12)
[2018-08-03] MEDS: ATORVASTATIN 10 MG TAB PO (21:39)
[2018-08-03] MEDS: DOCUSATE SODIUM 100 MG CAP PO (21:39)
[2018-08-04 06:10] LABS: ADD MAN DIFF? NO
[2018-08-04 06:18] LABS: BASOPHIL # 0.1 10^3/ul (0.0-0.1); EOSINOPHILS # 0.2 10^3/ul (0.0-0.5); HEMATOCRIT 27.8 % (37.0-47.0); HEMOGLOBIN 8.4 g/dl (12.0-16.0); LYMPHOCYTES # 0.9 10^3/ul (0.8-2.9); LYMPHOCYTES % 17.8 % (15.0-51.0); MEAN CORPUSCULAR HEMOGLOBIN 27.3 pg (29.0-33.0); MEAN CORPUSCULAR HGB CONC 30.2 g/dl (32.0-37.0); MEAN CORPUSCULAR VOLUME 90.3 fl (82.0-101.0); MEAN PLATELET VOLUME 8.3 fl (7.4-10.4); MONOCYTE # 0.7 10^3/ul (0.3-0.9); MONOCYTES % 14.9 % (0.0-11.0); NEUTROPHILS % 61.1 % (39.0-77.0); PLATELET COUNT 427 10^3/UL (140-415); RED BLOOD COUNT 3.08 10^6/ul (4.20-5.40); RED CELL DISTRIBUTION WIDTH 14.2 % (11.5-14.5)
[2018-08-04 06:18] LABS: WHITE BLOOD COUNT 4.8 10^3/ul (4.8-10.8)
[2018-08-04 06:33] LABS: ANION GAP 9 (5-13); BLOOD UREA NITROGEN 13 mg/dl (7-20); CALCIUM 9.4 mg/dl (8.4-10.2); CARBON DIOXIDE 27 mmol/L (21-31); CHLORIDE 103 mmol/L (97-110); CREATININE 1.11 mg/dl (0.44-1.00); GLUCOSE 91 mg/dl (70-220); MAGNESIUM 2.1 mg/dl (1.7-2.5); PHOSPHORUS 3.9 mg/dl (2.5-4.9); POTASSIUM 3.6 mmol/L (3.5-5.1); SODIUM 139 mmol/L (135-144)
[2018-08-04] MEDS: HEPARIN 5,000 UNIT/1 ML VIAL SC ×2 (08:47→20:47)
[2018-08-04] MEDS: CARBIDOPA/LEVODOPA (25/100) TAB PO ×4 (08:48→20:43)
[2018-08-04] MEDS: AMLODIPINE 10 MG TAB PO (08:48)
[2018-08-04] MEDS: PRAMIPEXOLE 1 MG TAB PO (08:49)
[2018-08-04] MEDS: CEFTRIAXONE 1 GM/50 ML (PMX) 50 ML IVPB (08:49)
[2018-08-04] MEDS: MAGNESIUM HYDROXIDE 30ML CUP PO (08:49)
[2018-08-04 14:58] LABS: HEPATITIS C VIRAL ANTIBODY NEGATIVE (NEGATIVE)
[2018-08-04] MEDS: ATORVASTATIN 10 MG TAB PO (20:43)
[2018-08-04] MEDS: DOCUSATE SODIUM 100 MG CAP PO (20:43)
[2018-08-04] MEDS: ACETAMINOPHEN 325 MG TAB PO (20:44)
[2018-08-05 05:18] LABS: ADD MAN DIFF? NO
[2018-08-05 05:21] LABS: BASOPHIL # 0.1 10^3/ul (0.0-0.1); BASOPHILS % 1.1 % (0.0-2.0); EOSINOPHILS # 0.2 10^3/ul (0.0-0.5); EOSINOPHILS % 3.8 % (0.0-7.0); HEMATOCRIT 27.9 % (37.0-47.0); HEMOGLOBIN 8.4 g/dl (12.0-16.0); LYMPHOCYTES # 0.8 10^3/ul (0.8-2.9); LYMPHOCYTES % 16.7 % (15.0-51.0); MEAN CORPUSCULAR HEMOGLOBIN 27.1 pg (29.0-33.0); MEAN CORPUSCULAR HGB CONC 30.1 g/dl (32.0-37.0); MEAN PLATELET VOLUME 8.2 fl (7.4-10.4); MONOCYTE # 0.8 10^3/ul (0.3-0.9); NEUTROPHIL # 2.9 10^3/ul (1.6-7.5); PLATELET COUNT 414 10^3/UL (140-415); RED CELL DISTRIBUTION WIDTH 14.2 % (11.5-14.5)
[2018-08-05 05:21] LABS: WHITE BLOOD COUNT 4.7 10^3/ul (4.8-10.8)
[2018-08-05 05:25] LABS: MONOCYTES % 16.2 % (0.0-11.0)
[2018-08-05 05:33] LABS: ANION GAP 10 (5-13); BLOOD UREA NITROGEN 13 mg/dl (7-20); CALCIUM 9.4 mg/dl (8.4-10.2); CARBON DIOXIDE 27 mmol/L (21-31); CHLORIDE 106 mmol/L (97-110); CREATININE 1.01 mg/dl (0.44-1.00); GLUCOSE 94 mg/dl (70-220); MAGNESIUM 2.2 mg/dl (1.7-2.5); POTASSIUM 3.4 mmol/L (3.5-5.1); SODIUM 143 mmol/L (135-144)
[2018-08-05] MEDS: CEFTRIAXONE 1 GM/50 ML (PMX) 50 ML IVPB (08:42)
[2018-08-05] MEDS: CARBIDOPA/LEVODOPA (25/100) TAB PO ×4 (08:42→21:29)
[2018-08-05] MEDS: PRAMIPEXOLE 1 MG TAB PO (08:42)
[2018-08-05] MEDS: AMLODIPINE 10 MG TAB PO (08:43)
[2018-08-05] MEDS: MAGNESIUM HYDROXIDE 30ML CUP PO (08:43)
[2018-08-05] MEDS: HEPARIN 5,000 UNIT/1 ML VIAL SC ×2 (08:46→21:35)
[2018-08-05] MEDS: POTASSIUM CHLORIDE (SR) 20 MEQ TAB PO (10:28)
[2018-08-05] MEDS: DOCUSATE SODIUM 100 MG CAP PO (21:28)
[2018-08-05] MEDS: ATORVASTATIN 10 MG TAB PO (21:29)
[2018-08-06 06:16] LABS: ADD MAN DIFF? NO
[2018-08-06 06:20] LABS: WHITE BLOOD COUNT 5.8 10^3/ul (4.8-10.8)
[2018-08-06 06:20] LABS: BASOPHILS % 0.5 % (0.0-2.0); EOSINOPHILS # 0.2 10^3/ul (0.0-0.5); EOSINOPHILS % 2.8 % (0.0-7.0); HEMATOCRIT 27.8 % (37.0-47.0); HEMOGLOBIN 8.3 g/dl (12.0-16.0); LYMPHOCYTES # 0.8 10^3/ul (0.8-2.9); LYMPHOCYTES % 13.7 % (15.0-51.0); MEAN CORPUSCULAR HEMOGLOBIN 26.8 pg (29.0-33.0); MEAN CORPUSCULAR HGB CONC 29.9 g/dl (32.0-37.0); MEAN CORPUSCULAR VOLUME 89.7 fl (82.0-101.0); MEAN PLATELET VOLUME 8.4 fl (7.4-10.4); MONOCYTE # 0.7 10^3/ul (0.3-0.9); MONOCYTES % 12.7 % (0.0-11.0); NEUTROPHIL # 4.1 10^3/ul (1.6-7.5); NEUTROPHILS % 70.1 % (39.0-77.0); PLATELET COUNT 449 10^3/UL (140-415); RED CELL DISTRIBUTION WIDTH 14.2 % (11.5-14.5)
[2018-08-06 07:06] LABS: ALBUMIN 3.6 g/dl (3.3-4.9); ANION GAP 10 (5-13); BLOOD UREA NITROGEN 11 mg/dl (7-20); CALCIUM 9.6 mg/dl (8.4-10.2); CARBON DIOXIDE 26 mmol/L (21-31); CHLORIDE 107 mmol/L (97-110); CREATININE 1.02 mg/dl (0.44-1.00); GLUCOSE 101 mg/dl (70-220); PHOSPHORUS 3.7 mg/dl (2.5-4.9); POTASSIUM 4.1 mmol/L (3.5-5.1); SODIUM 143 mmol/L (135-144)
[2018-08-06] MEDS: AMLODIPINE 10 MG TAB PO (09:35)
[2018-08-06] MEDS: MAGNESIUM HYDROXIDE 30ML CUP PO (09:35)
[2018-08-06] MEDS: PRAMIPEXOLE 1 MG TAB PO (09:35)
[2018-08-06] MEDS: CEFTRIAXONE 1 GM/50 ML (PMX) 50 ML IVPB (09:35)
[2018-08-06] MEDS: CARBIDOPA/LEVODOPA (25/100) TAB PO ×4 (09:35→21:01)
[2018-08-06] MEDS: HEPARIN 5,000 UNIT/1 ML VIAL SC ×2 (09:37→21:04)
[2018-08-06] MEDS: ATORVASTATIN 10 MG TAB PO (21:01)
[2018-08-06] MEDS: DOCUSATE SODIUM 100 MG CAP PO (21:01)
[2018-08-07] MEDS: ACETAMINOPHEN 325 MG TAB PO (02:32)
[2018-08-07 05:56] LABS: ADD MAN DIFF? NO
[2018-08-07 06:03] LABS: WHITE BLOOD COUNT 6.8 10^3/ul (4.8-10.8)
[2018-08-07 06:03] LABS: BASOPHIL # 0.1 10^3/ul (0.0-0.1); BASOPHILS % 0.7 % (0.0-2.0); EOSINOPHILS # 0.1 10^3/ul (0.0-0.5); EOSINOPHILS % 0.9 % (0.0-7.0); HEMATOCRIT 27.6 % (37.0-47.0); HEMOGLOBIN 8.3 g/dl (12.0-16.0); LYMPHOCYTES # 0.8 10^3/ul (0.8-2.9); LYMPHOCYTES % 11.8 % (15.0-51.0); MEAN CORPUSCULAR HEMOGLOBIN 27.3 pg (29.0-33.0); MEAN CORPUSCULAR HGB CONC 30.1 g/dl (32.0-37.0); MEAN CORPUSCULAR VOLUME 90.8 fl (82.0-101.0); MEAN PLATELET VOLUME 8.4 fl (7.4-10.4); MONOCYTE # 0.7 10^3/ul (0.3-0.9); MONOCYTES % 10.6 % (0.0-11.0); NEUTROPHIL # 5.1 10^3/ul (1.6-7.5); NEUTROPHILS % 75.7 % (39.0-77.0); PLATELET COUNT 451 10^3/UL (140-415); RED BLOOD COUNT 3.04 10^6/ul (4.20-5.40); RED CELL DISTRIBUTION WIDTH 14.4 % (11.5-14.5)
[2018-08-07] MEDS: PRAMIPEXOLE 1 MG TAB PO (09:12)
[2018-08-07] MEDS: AMLODIPINE 10 MG TAB PO (09:13)
[2018-08-07] MEDS: CEFTRIAXONE 1 GM/50 ML (PMX) 50 ML IVPB (09:15)
[2018-08-07] MEDS: HYDROCODONE/APAP (5/325) TAB PO (09:15)
[2018-08-07] MEDS: CARBIDOPA/LEVODOPA (25/100) TAB PO ×4 (09:16→20:57)
[2018-08-07] MEDS: HEPARIN 5,000 UNIT/1 ML VIAL SC ×2 (09:23→21:02)
[2018-08-07] MEDS: MAGNESIUM HYDROXIDE 30ML CUP PO (09:26)
[2018-08-07] MEDS: ATORVASTATIN 10 MG TAB PO (20:57)
[2018-08-07] MEDS: DOCUSATE SODIUM 100 MG CAP PO (20:57)
[2018-08-08] MEDS: HYDROCODONE/APAP (5/325) TAB PO (04:08)
[2018-08-08 05:35] LABS: ADD MAN DIFF? NO
[2018-08-08 05:38] LABS: BASOPHIL # 0.1 10^3/ul (0.0-0.1); BASOPHILS % 0.6 % (0.0-2.0); EOSINOPHILS # 0.1 10^3/ul (0.0-0.5); EOSINOPHILS % 1.1 % (0.0-7.0); HEMATOCRIT 26.8 % (37.0-47.0); HEMOGLOBIN 8.1 g/dl (12.0-16.0); LYMPHOCYTES # 0.7 10^3/ul (0.8-2.9); LYMPHOCYTES % 8.7 % (15.0-51.0); MEAN CORPUSCULAR HEMOGLOBIN 27.3 pg (29.0-33.0); MEAN CORPUSCULAR HGB CONC 30.2 g/dl (32.0-37.0); MEAN CORPUSCULAR VOLUME 90.2 fl (82.0-101.0); MEAN PLATELET VOLUME 8.4 fl (7.4-10.4); MONOCYTE # 0.7 10^3/ul (0.3-0.9); MONOCYTES % 8.4 % (0.0-11.0); NEUTROPHIL # 6.4 10^3/ul (1.6-7.5); NEUTROPHILS % 80.7 % (39.0-77.0); PLATELET COUNT 480 10^3/UL (140-415); RED BLOOD COUNT 2.97 10^6/ul (4.20-5.40); RED CELL DISTRIBUTION WIDTH 14.2 % (11.5-14.5)
[2018-08-08 06:25] LABS: ANION GAP 13 (5-13)
[2018-08-08 06:29] LABS: ALBUMIN 3.7 g/dl (3.3-4.9); BLOOD UREA NITROGEN 15 mg/dl (7-20); CALCIUM 9.2 mg/dl (8.4-10.2); CARBON DIOXIDE 26 mmol/L (21-31); CHLORIDE 103 mmol/L (97-110); CREATININE 1.01 mg/dl (0.44-1.00); GLUCOSE 114 mg/dl (70-220); MAGNESIUM 2.2 mg/dl (1.7-2.5); PHOSPHORUS 3.5 mg/dl (2.5-4.9); SODIUM 142 mmol/L (135-144)
[2018-08-08] MEDS: CEFTRIAXONE 1 GM/50 ML (PMX) 50 ML IVPB (09:39)
[2018-08-08] MEDS: MAGNESIUM HYDROXIDE 30ML CUP PO (09:39)
[2018-08-08] MEDS: PRAMIPEXOLE 1 MG TAB PO ×2 (09:39→20:37)
[2018-08-08] MEDS: CARBIDOPA/LEVODOPA (25/100) TAB PO ×4 (09:39→20:38)
[2018-08-08] MEDS: AMLODIPINE 10 MG TAB PO (09:39)
[2018-08-08] MEDS: ACETAMINOPHEN 325 MG TAB PO (09:40)
[2018-08-08] MEDS: HEPARIN 5,000 UNIT/1 ML VIAL SC ×2 (09:46→20:42)
[2018-08-08] MEDS: DOCUSATE SODIUM 100 MG CAP PO (20:37)
[2018-08-08] MEDS: ATORVASTATIN 10 MG TAB PO (20:38)
[2018-08-09 06:18] LABS: ADD MAN DIFF? NO
[2018-08-09 06:23] LABS: BASOPHILS % 0.8 % (0.0-2.0); EOSINOPHILS # 0.4 10^3/ul (0.0-0.5); EOSINOPHILS % 8.2 % (0.0-7.0); HEMATOCRIT 27.3 % (37.0-47.0); HEMOGLOBIN 8.3 g/dl (12.0-16.0); LYMPHOCYTES # 0.7 10^3/ul (0.8-2.9); LYMPHOCYTES % 14.6 % (15.0-51.0); MEAN CORPUSCULAR HEMOGLOBIN 27.8 pg (29.0-33.0); MEAN CORPUSCULAR HGB CONC 30.4 g/dl (32.0-37.0); MEAN CORPUSCULAR VOLUME 91.3 fl (82.0-101.0); MEAN PLATELET VOLUME 8.4 fl (7.4-10.4); MONOCYTE # 0.9 10^3/ul (0.3-0.9); NEUTROPHIL # 2.9 10^3/ul (1.6-7.5); PLATELET COUNT 493 10^3/UL (140-415); RED BLOOD COUNT 2.99 10^6/ul (4.20-5.40); RED CELL DISTRIBUTION WIDTH 14.2 % (11.5-14.5)
[2018-08-09] MEDS: PRAMIPEXOLE 1 MG TAB PO ×3 (08:57→20:20)
[2018-08-09] MEDS: CARBIDOPA/LEVODOPA (25/100) TAB PO ×4 (08:58→20:20)
[2018-08-09] MEDS: CEFTRIAXONE 1 GM/50 ML (PMX) 50 ML IVPB (08:59)
[2018-08-09] MEDS: AMLODIPINE 10 MG TAB PO (08:59)
[2018-08-09] MEDS: MAGNESIUM HYDROXIDE 30ML CUP PO (09:00)
[2018-08-09] MEDS: HEPARIN 5,000 UNIT/1 ML VIAL SC ×2 (09:01→20:22)
[2018-08-09] MEDS: ACETAMINOPHEN 325 MG TAB PO (19:45)
[2018-08-09] MEDS: DOCUSATE SODIUM 100 MG CAP PO (20:20)
[2018-08-09] MEDS: ATORVASTATIN 10 MG TAB PO (20:20)
[2018-08-09] MEDS: HYDROCODONE/APAP (5/325) TAB PO (21:44)
[2018-08-09 22:34] LABS: ADD UMIC NO; UR ASCORBIC ACID NEGATIVE (NEGATIVE); UR BILIRUBIN (Dip) NEGATIVE (NEGATIVE); UR BLOOD (Dip) NEGATIVE (NEGATIVE); UR CLARITY CLEAR (CLEAR); UR COLOR YELLOW (YELLOW); UR GLUCOSE (Dip) NEGATIVE (NEGATIVE); UR KETONES (Dip) TRACE mg/dL (NEGATIVE); UR LEUKOCYTE ESTERASE (Dip) NEGATIVE Leu/ul (NEGATIVE); UR NITRITE (Dip) NEGATIVE (NEGATIVE); UR SPECIFIC GRAVITY (Dip) 1.017 (1.003-1.030); UR TOTAL PROTEIN (Dip) NEGATIVE (NEGATIVE); UR UROBILINOGEN (Dip) NEGATIVE (NEGATIVE)
[2018-08-10 06:39] LABS: ADD MAN DIFF? NO
[2018-08-10 06:41] LABS: WHITE BLOOD COUNT 6.2 10^3/ul (4.8-10.8)
[2018-08-10 06:41] LABS: BASOPHILS % 0.5 % (0.0-2.0); EOSINOPHILS # 0.3 10^3/ul (0.0-0.5); EOSINOPHILS % 5.3 % (0.0-7.0); HEMATOCRIT 29.6 % (37.0-47.0); HEMOGLOBIN 8.7 g/dl (12.0-16.0); LYMPHOCYTES # 0.9 10^3/ul (0.8-2.9); LYMPHOCYTES % 14.6 % (15.0-51.0); MEAN CORPUSCULAR HEMOGLOBIN 26.9 pg (29.0-33.0); MEAN CORPUSCULAR HGB CONC 29.4 g/dl (32.0-37.0); MEAN CORPUSCULAR VOLUME 91.6 fl (82.0-101.0); MEAN PLATELET VOLUME 8.3 fl (7.4-10.4); MONOCYTE # 0.9 10^3/ul (0.3-0.9); MONOCYTES % 14.1 % (0.0-11.0); NEUTROPHILS % 65.2 % (39.0-77.0); PLATELET COUNT 524 10^3/UL (140-415); RED BLOOD COUNT 3.23 10^6/ul (4.20-5.40); RED CELL DISTRIBUTION WIDTH 14.3 % (11.5-14.5)
[2018-08-10 07:10] LABS: ANION GAP 8 (5-13); BLOOD UREA NITROGEN 13 mg/dl (7-20); CALCIUM 9.9 mg/dl (8.4-10.2); CARBON DIOXIDE 30 mmol/L (21-31); CHLORIDE 104 mmol/L (97-110); CREATININE 0.88 mg/dl (0.44-1.00); GLUCOSE 109 mg/dl (70-220); POTASSIUM 3.6 mmol/L (3.5-5.1); SODIUM 142 mmol/L (135-144)
[2018-08-10] MEDS: CEFTRIAXONE 1 GM/50 ML (PMX) 50 ML IVPB (08:13)
[2018-08-10] MEDS: PRAMIPEXOLE 1 MG TAB PO ×3 (08:15→21:44)
[2018-08-10] MEDS: CARBIDOPA/LEVODOPA (25/100) TAB PO ×4 (08:15→21:44)
[2018-08-10] MEDS: HEPARIN 5,000 UNIT/1 ML VIAL SC ×2 (08:18→21:49)
[2018-08-10] MEDS: MAGNESIUM HYDROXIDE 30ML CUP PO (09:00)
[2018-08-10] MEDS: POTASSIUM CHLORIDE (SR) 20 MEQ TAB PO (09:50)
[2018-08-10] MEDS: ACETAMINOPHEN 325 MG TAB PO (09:50)
[2018-08-10] MEDS: AMLODIPINE 10 MG TAB PO (13:32)
[2018-08-10] MEDS: ATORVASTATIN 10 MG TAB PO (21:43)
[2018-08-10] MEDS: DOCUSATE SODIUM 100 MG CAP PO (21:44)
[2018-08-10] MEDS: CARBIDOPA/LEVODOPA (25/250) TAB PO (22:00)
[2018-08-10] MEDS: ENTACAPONE 200 MG TAB PO (22:01)
[2018-08-11] MEDS: HALOPERIDOL 5 MG INJ IM (01:24)
[2018-08-11] MEDS: LORAZEPAM 2 MG INJ IV (02:06)
[2018-08-11 06:02] LABS: ADD MAN DIFF? NO
[2018-08-11 06:10] LABS: WHITE BLOOD COUNT 6.2 10^3/ul (4.8-10.8)
[2018-08-11 06:10] LABS: BASOPHILS % 0.6 % (0.0-2.0); EOSINOPHILS # 0.2 10^3/ul (0.0-0.5); EOSINOPHILS % 3.2 % (0.0-7.0); HEMATOCRIT 27.7 % (37.0-47.0); HEMOGLOBIN 8.2 g/dl (12.0-16.0); LYMPHOCYTES # 0.8 10^3/ul (0.8-2.9); LYMPHOCYTES % 13.4 % (15.0-51.0); MEAN CORPUSCULAR HEMOGLOBIN 27.1 pg (29.0-33.0); MEAN CORPUSCULAR HGB CONC 29.6 g/dl (32.0-37.0); MEAN CORPUSCULAR VOLUME 91.4 fl (82.0-101.0); MEAN PLATELET VOLUME 8.4 fl (7.4-10.4); MONOCYTES % 15.5 % (0.0-11.0); NEUTROPHIL # 4.1 10^3/ul (1.6-7.5); PLATELET COUNT 544 10^3/UL (140-415); RED BLOOD COUNT 3.03 10^6/ul (4.20-5.40); RED CELL DISTRIBUTION WIDTH 14.3 % (11.5-14.5)
[2018-08-11 07:01] LABS: ALBUMIN 3.7 g/dl (3.3-4.9); ANION GAP 13 (5-13); BLOOD UREA NITROGEN 12 mg/dl (7-20); CALCIUM 9.8 mg/dl (8.4-10.2); CARBON DIOXIDE 26 mmol/L (21-31); CHLORIDE 106 mmol/L (97-110); CREATININE 0.95 mg/dl (0.44-1.00); GLUCOSE 84 mg/dl (70-220); MAGNESIUM 2.2 mg/dl (1.7-2.5); PHOSPHORUS 3.8 mg/dl (2.5-4.9); POTASSIUM 4.2 mmol/L (3.5-5.1); SODIUM 145 mmol/L (135-144)
[2018-08-11] MEDS: MAGNESIUM HYDROXIDE 30ML CUP PO (09:00)
[2018-08-11] MEDS: HEPARIN 5,000 UNIT/1 ML VIAL SC ×2 (09:38→20:53)
[2018-08-11] MEDS: ACETAMINOPHEN 325 MG TAB PO (09:38)
[2018-08-11] MEDS: ENTACAPONE 200 MG TAB PO ×3 (09:38→20:50)
[2018-08-11] MEDS: PRAMIPEXOLE 1 MG TAB PO ×3 (09:38→20:50)
[2018-08-11] MEDS: AMLODIPINE 10 MG TAB PO (09:39)
[2018-08-11] MEDS: CEFTRIAXONE 1 GM/50 ML (PMX) 50 ML IVPB (09:40)
[2018-08-11] MEDS: CARBIDOPA/LEVODOPA (25/100) TAB PO ×4 (09:42→20:51)
[2018-08-11] MEDS: HYDROCODONE/APAP (5/325) TAB PO ×2 (10:39→20:51)
[2018-08-11] MEDS: ATORVASTATIN 10 MG TAB PO (20:50)
[2018-08-11] MEDS: DOCUSATE SODIUM 100 MG CAP PO (20:50)
[2018-08-11] MEDS: CARBIDOPA/LEVODOPA (25/250) TAB PO (20:51)
[2018-08-12 06:12] LABS: ADD MAN DIFF? NO
[2018-08-12 06:24] LABS: ABNORMAL IP MESSAGE 1; BASOPHILS % 0.6 % (0.0-2.0); EOSINOPHILS # 0.3 10^3/ul (0.0-0.5); EOSINOPHILS % 5.5 % (0.0-7.0); HEMATOCRIT 27.1 % (37.0-47.0); HEMOGLOBIN 8.2 g/dl (12.0-16.0); LYMPHOCYTES # 0.6 10^3/ul (0.8-2.9); LYMPHOCYTES % 12.6 % (15.0-51.0); MEAN CORPUSCULAR HEMOGLOBIN 27.4 pg (29.0-33.0); MEAN CORPUSCULAR HGB CONC 30.3 g/dl (32.0-37.0); MEAN CORPUSCULAR VOLUME 90.6 fl (82.0-101.0); MEAN PLATELET VOLUME 8.3 fl (7.4-10.4); MONOCYTE # 0.7 10^3/ul (0.3-0.9); MONOCYTES % 14.5 % (0.0-11.0); NEUTROPHIL # 3.1 10^3/ul (1.6-7.5); NEUTROPHILS % 66.4 % (39.0-77.0); PLATELET COUNT 527 10^3/UL (140-415); RED BLOOD COUNT 2.99 10^6/ul (4.20-5.40); RED CELL DISTRIBUTION WIDTH 14.4 % (11.5-14.5)
[2018-08-12 06:24] LABS: WHITE BLOOD COUNT 4.7 10^3/ul (4.8-10.8)
[2018-08-12 06:26] LABS: POSITIVE DIFF @See below
[2018-08-12 06:54] LABS: ALBUMIN 3.6 g/dl (3.3-4.9); ANION GAP 9 (5-13); BLOOD UREA NITROGEN 15 mg/dl (7-20); CALCIUM 9.6 mg/dl (8.4-10.2); CARBON DIOXIDE 26 mmol/L (21-31); CHLORIDE 106 mmol/L (97-110); CREATININE 0.92 mg/dl (0.44-1.00); GLUCOSE 86 mg/dl (70-220); MAGNESIUM 2.2 mg/dl (1.7-2.5); PHOSPHORUS 4.2 mg/dl (2.5-4.9); SODIUM 141 mmol/L (135-144)
[2018-08-12] MEDS: ENTACAPONE 200 MG TAB PO ×3 (08:31→20:59)
[2018-08-12] MEDS: PRAMIPEXOLE 1 MG TAB PO ×3 (08:31→20:59)
[2018-08-12] MEDS: MAGNESIUM HYDROXIDE 30ML CUP PO ×2 (08:31→08:51)
[2018-08-12] MEDS: CARBIDOPA/LEVODOPA (25/100) TAB PO ×5 (08:31→20:59)
[2018-08-12] MEDS: AMLODIPINE 10 MG TAB PO (08:31)
[2018-08-12] MEDS: CEFTRIAXONE 1 GM/50 ML (PMX) 50 ML IVPB (08:32)
[2018-08-12] MEDS: HEPARIN 5,000 UNIT/1 ML VIAL SC ×2 (08:34→21:05)
[2018-08-12] MEDS: ATORVASTATIN 10 MG TAB PO (20:59)
[2018-08-12] MEDS: DOCUSATE SODIUM 100 MG CAP PO (20:59)
[2018-08-12] MEDS: CARBIDOPA/LEVODOPA (25/250) TAB PO (21:30)
[2018-08-13 05:43] LABS: ADD MAN DIFF? NO
[2018-08-13 05:47] LABS: BASOPHILS % 0.5 % (0.0-2.0); EOSINOPHILS # 0.3 10^3/ul (0.0-0.5); EOSINOPHILS % 3.9 % (0.0-7.0); HEMATOCRIT 29.8 % (37.0-47.0); HEMOGLOBIN 8.7 g/dl (12.0-16.0); LYMPHOCYTES # 1.1 10^3/ul (0.8-2.9); LYMPHOCYTES % 14.6 % (15.0-51.0); MEAN CORPUSCULAR HEMOGLOBIN 26.8 pg (29.0-33.0); MEAN CORPUSCULAR HGB CONC 29.2 g/dl (32.0-37.0); MEAN CORPUSCULAR VOLUME 91.7 fl (82.0-101.0); MEAN PLATELET VOLUME 8.3 fl (7.4-10.4); MONOCYTES % 13.2 % (0.0-11.0); NEUTROPHIL # 5.2 10^3/ul (1.6-7.5); NEUTROPHILS % 67.5 % (39.0-77.0); PLATELET COUNT 577 10^3/UL (140-415); RED BLOOD COUNT 3.25 10^6/ul (4.20-5.40); RED CELL DISTRIBUTION WIDTH 14.5 % (11.5-14.5)
[2018-08-13 05:47] LABS: WHITE BLOOD COUNT 7.7 10^3/ul (4.8-10.8)
[2018-08-13 06:41] LABS: ANION GAP 11 (5-13); BLOOD UREA NITROGEN 13 mg/dl (7-20); CALCIUM 9.7 mg/dl (8.4-10.2); CARBON DIOXIDE 27 mmol/L (21-31); CHLORIDE 105 mmol/L (97-110); CREATININE 0.96 mg/dl (0.44-1.00); GLUCOSE 100 mg/dl (70-220); MAGNESIUM 2.1 mg/dl (1.7-2.5); PHOSPHORUS 3.5 mg/dl (2.5-4.9); POTASSIUM 3.6 mmol/L (3.5-5.1); SODIUM 143 mmol/L (135-144)
[2018-08-13] MEDS: HYDROCODONE/APAP (5/325) TAB PO (07:46)
[2018-08-13] MEDS: CARBIDOPA/LEVODOPA (25/100) TAB PO ×3 (08:12→16:56)
[2018-08-13] MEDS: AMLODIPINE 10 MG TAB PO (08:12)
[2018-08-13] MEDS: ENTACAPONE 200 MG TAB PO ×2 (08:12→12:17)
[2018-08-13] MEDS: CEFTRIAXONE 1 GM/50 ML (PMX) 50 ML IVPB (08:13)
[2018-08-13] MEDS: PRAMIPEXOLE 1 MG TAB PO ×2 (08:13→12:17)
[2018-08-13] MEDS: HEPARIN 5,000 UNIT/1 ML VIAL SC (08:15)
[2018-08-13] MEDS: MAGNESIUM HYDROXIDE 30ML CUP PO (08:15)
[2018-08-14 14:06] LABS: PROCALCITONIN 0.23 ng/mL (<0.10)
== END 2018-08-13 18:40 | DRG 871 ==
LOC: 2NE 22:22 → E/R 17:50 → 2NE 08-01 21:17
DX: A40.8 Other streptococcal sepsis (principal); G92 Toxic encephalopathy; N39.0 Urinary tract infection, site not specified; N17.9 Acute kidney failure, unspecified; I10 Essential (primary) hypertension; R16.0 Hepatomegaly, not elsewhere classified; D64.9 Anemia, unspecified; G20 Parkinson's disease; M24.411 Recurrent dislocation, right shoulder; E87.6 Hypokalemia; E78.5 Hyperlipidemia, unspecified
CPT/HCPCS: 36415; 70450; 71045; 73510; 80048; 80053; 80069; 81001; 81003; 83605; 83735; 84100; 84145; 84484; 85025; 85610; 85730; 86803; 87040; 87086; 87400; 87522; 93005; 93306; 93970; 96365; 96366; 96368; 97162; 97165; 97530; 97535; 99291-25

== ENCOUNTER 2018-08-19 19:16 | Inpatient (IN) | payer MEDICARE, OTHER ==
[2018-08-19 20:12] LABS: ADD MAN DIFF? NO
[2018-08-19 20:20] LABS: BASOPHILS % 0.7 % (0.0-2.0); HEMOGLOBIN 8.7 g/dl (12.0-16.0); LYMPHOCYTES # 0.7 10^3/ul (0.8-2.9); LYMPHOCYTES % 11.4 % (15.0-51.0); MEAN CORPUSCULAR HEMOGLOBIN 27.5 pg (29.0-33.0); MEAN CORPUSCULAR VOLUME 91.8 fl (82.0-101.0); MEAN PLATELET VOLUME 8.2 fl (7.4-10.4); MONOCYTE # 0.5 10^3/ul (0.3-0.9); MONOCYTES % 8.6 % (0.0-11.0); NEUTROPHIL # 4.7 10^3/ul (1.6-7.5); NEUTROPHILS % 78.8 % (39.0-77.0); PLATELET COUNT 527 10^3/UL (140-415); RED BLOOD COUNT 3.16 10^6/ul (4.20-5.40); RED CELL DISTRIBUTION WIDTH 15.3 % (11.5-14.5)
[2018-08-19] MEDS: IBUPROFEN 600 MG TAB PO (20:32)
[2018-08-19 20:34] LABS: LACTIC ACID 0.9 mmol/L (0.5-2.0)
[2018-08-19 20:35] LABS: ALANINE AMINOTRANSFERASE 7 IU/L (13-69); ALBUMIN 3.8 g/dl (3.3-4.9); ALBUMIN/GLOBULIN RATIO 0.88; ALKALINE PHOSPHATASE 131 IU/L (42-121); ANION GAP 11 (5-13); ASPARTATE AMINO TRANSFERASE 60 IU/L (15-46); BILIRUBIN,TOTAL 0.3 mg/dl (0.2-1.3); BLOOD UREA NITROGEN 33 mg/dl (7-20); CALCIUM 9.5 mg/dl (8.4-10.2); CARBON DIOXIDE 23 mmol/L (21-31); CHLORIDE 112 mmol/L (97-110); CREATININE 1.28 mg/dl (0.44-1.00); GLUCOSE 95 mg/dl (70-220); LIPASE 278 U/L (23-300); POTASSIUM 3.7 mmol/L (3.5-5.1); SODIUM 146 mmol/L (135-144); TOTAL PROTEIN 8.1 g/dl (6.1-8.1)
[2018-08-19] MEDS: SOD CHLORIDE 0.9% 1,000 ML IV ×2 (20:36→20:39)
[2018-08-19 20:43] LABS: ADD UMIC YES; UR ASCORBIC ACID 40 mg/dL (NEGATIVE); UR BILIRUBIN (Dip) NEGATIVE (NEGATIVE); UR BLOOD (Dip) NEGATIVE (NEGATIVE); UR CLARITY CLEAR (CLEAR); UR COLOR AMBER (YELLOW); UR GLUCOSE (Dip) NEGATIVE (NEGATIVE); UR KETONES (Dip) 1+ mg/dL (NEGATIVE); UR LEUKOCYTE ESTERASE (Dip) NEGATIVE Leu/ul (NEGATIVE); UR MUCUS FEW /HPF (NONE SEEN); UR NITRITE (Dip) NEGATIVE (NEGATIVE); UR RBC 1 /HPF (0-5); UR TOTAL PROTEIN (Dip) 1+ mg/dl (NEGATIVE); UR UROBILINOGEN (Dip) NEGATIVE (NEGATIVE); UR WBC 3 /HPF (0-5)
[2018-08-19 20:54] LABS: TROPONIN-I 0.191 ng/ml (0.000-0.120)
[2018-08-19] MEDS ORDERED: NITROGLYCERIN (SL) 0.4 MG TAB SL (21:30)
[2018-08-19] MEDS ORDERED: DOCUSATE SODIUM 100 MG CAP PO (21:30)
[2018-08-19] MEDS ORDERED: BISACODYL 10 MG SUPP PR (21:30)
[2018-08-19] MEDS ORDERED: ONDANSETRON 4 MG INJ IV (21:30)
[2018-08-19] MEDS ORDERED: NACL 0.9% 3 ML SYG IV (21:30)
[2018-08-19] MEDS ORDERED: ACETAMINOPHEN 325 MG TAB PO (21:30)
[2018-08-19] MEDS: CARBIDOPA/LEVODOPA (25/250) TAB PO (23:34)
[2018-08-19] MEDS: ASPIRIN 81 MG TAB PO (23:34)
[2018-08-20 00:45] LABS: CREATINE KINASE 643 IU/L (23-200)
[2018-08-20 00:57] LABS: CK INDEX 0.7; CK-MB 4.82 ng/ml (0.0-2.4)
[2018-08-20] MEDS: SOD CHLORIDE 0.45% 1,000 ML IV (02:36)
[2018-08-20 06:29] LABS: ADD MAN DIFF? NO
[2018-08-20 06:39] LABS: WHITE BLOOD COUNT 4.7 10^3/ul (4.8-10.8)
[2018-08-20 06:39] LABS: ABNORMAL IP MESSAGE 1; BASOPHILS % 0.9 % (0.0-2.0); EOSINOPHILS % 0.9 % (0.0-7.0); HEMATOCRIT 25.8 % (37.0-47.0); HEMOGLOBIN 7.4 g/dl (12.0-16.0); LYMPHOCYTES # 0.9 10^3/ul (0.8-2.9); LYMPHOCYTES % 18.1 % (15.0-51.0); MEAN CORPUSCULAR HEMOGLOBIN 26.9 pg (29.0-33.0); MEAN CORPUSCULAR HGB CONC 28.7 g/dl (32.0-37.0); MEAN CORPUSCULAR VOLUME 93.8 fl (82.0-101.0); MEAN PLATELET VOLUME 8.2 fl (7.4-10.4); MONOCYTE # 0.7 10^3/ul (0.3-0.9); MONOCYTES % 14.3 % (0.0-11.0); NEUTROPHIL # 3.1 10^3/ul (1.6-7.5); NEUTROPHILS % 65.2 % (39.0-77.0); PLATELET COUNT 434 10^3/UL (140-415); RED BLOOD COUNT 2.75 10^6/ul (4.20-5.40); RED CELL DISTRIBUTION WIDTH 15.6 % (11.5-14.5)
[2018-08-20 06:47] LABS: POSITIVE DIFF @See below
[2018-08-20 07:01] LABS: LACTIC ACID 0.8 mmol/L (0.5-2.0)
[2018-08-20 07:05] LABS: ALANINE AMINOTRANSFERASE 15 IU/L (13-69); ALBUMIN/GLOBULIN RATIO 0.88; ALKALINE PHOSPHATASE 98 IU/L (42-121); ANION GAP 12 (5-13); ASPARTATE AMINO TRANSFERASE 47 IU/L (15-46); BILIRUBIN,TOTAL 0.1 mg/dl (0.2-1.3); BLOOD UREA NITROGEN 25 mg/dl (7-20); CALCIUM 8.7 mg/dl (8.4-10.2); CARBON DIOXIDE 20 mmol/L (21-31); CHLORIDE 113 mmol/L (97-110); CREATININE 0.89 mg/dl (0.44-1.00); GLUCOSE 68 mg/dl (70-220); MAGNESIUM 2.3 mg/dl (1.7-2.5); POTASSIUM 3.6 mmol/L (3.5-5.1); SODIUM 145 mmol/L (135-144); TOTAL PROTEIN 6.4 g/dl (6.1-8.1)
[2018-08-20 07:06] LABS: CREATINE KINASE 532 IU/L (23-200)
[2018-08-20 07:15] LABS: CK INDEX 0.9; CK-MB 4.85 ng/ml (0.0-2.4); TROPONIN-I 0.084 ng/ml (0.000-0.120)
[2018-08-20 07:32] LABS: THYROID STIMULATING HORMONE 0.245 MIU/L (0.465-4.680)
[2018-08-20] MEDS ORDERED: AMLODIPINE 10 MG TAB PO (09:00)
[2018-08-20] MEDS ORDERED: ENTACAPONE 200 MG TAB PO (09:00)
[2018-08-20] MEDS: SODIUM CHLORIDE 0.45% 500 ML BAG IV* (09:00)
[2018-08-20] MEDS ORDERED: CARBIDOPA/LEVODOPA (25/100) TAB PO (09:00)
[2018-08-20] MEDS: ASCORBIC ACID 500 MG TAB PO (09:50)
[2018-08-20] MEDS: PRAMIPEXOLE 1 MG TAB PO ×3 (09:50→21:05)
[2018-08-20] MEDS: CARBIDOPA/LEVODOPA (25/100) TAB PO ×3 (09:50→19:16)
[2018-08-20] MEDS: D5W-0.45 NACL + KCL 20 MEQ 1,000 ML IV (09:58)
[2018-08-20 12:12] LABS: HEMATOCRIT 24.5 % (37.0-47.0); HEMOGLOBIN 7.2 g/dl (12.0-16.0)
[2018-08-20] MEDS: AMLODIPINE 5 MG TAB PO (13:21)
[2018-08-20] MEDS: BENZTROPINE 1 MG TAB PO (21:04)
[2018-08-20] MEDS: ATORVASTATIN 10 MG TAB PO (21:05)
[2018-08-20] MEDS: CARBIDOPA/LEVODOPA (25/250) TAB PO (21:05)
[2018-08-20] MEDS: DOCUSATE SODIUM 100 MG CAP PO (21:05)
[2018-08-21 06:21] LABS: ADD MAN DIFF? NO
[2018-08-21 06:28] LABS: ABNORMAL IP MESSAGE 1; BASOPHILS % 0.2 % (0.0-2.0); EOSINOPHILS # 0.2 10^3/ul (0.0-0.5); EOSINOPHILS % 3.5 % (0.0-7.0); HEMATOCRIT 25.4 % (37.0-47.0); HEMOGLOBIN 7.3 g/dl (12.0-16.0); LYMPHOCYTES # 0.6 10^3/ul (0.8-2.9); LYMPHOCYTES % 12.7 % (15.0-51.0); MEAN CORPUSCULAR HEMOGLOBIN 26.5 pg (29.0-33.0); MEAN CORPUSCULAR HGB CONC 28.7 g/dl (32.0-37.0); MEAN CORPUSCULAR VOLUME 92.4 fl (82.0-101.0); MEAN PLATELET VOLUME 8.3 fl (7.4-10.4); MONOCYTE # 0.5 10^3/ul (0.3-0.9); MONOCYTES % 10.9 % (0.0-11.0); NEUTROPHIL # 3.5 10^3/ul (1.6-7.5); NEUTROPHILS % 72.3 % (39.0-77.0); PLATELET COUNT 403 10^3/UL (140-415); RED BLOOD COUNT 2.75 10^6/ul (4.20-5.40); RED CELL DISTRIBUTION WIDTH 15.6 % (11.5-14.5)
[2018-08-21 06:28] LABS: WHITE BLOOD COUNT 4.9 10^3/ul (4.8-10.8)
[2018-08-21 06:33] LABS: POSITIVE DIFF @See below
[2018-08-21] MEDS: D5W-0.45 NACL + KCL 20 MEQ 1,000 ML IV (06:40)
[2018-08-21] MEDS: CARBIDOPA/LEVODOPA (25/100) TAB PO ×4 (06:40→17:28)
[2018-08-21 06:52] LABS: ALANINE AMINOTRANSFERASE 15 IU/L (13-69); ALBUMIN 2.9 g/dl (3.3-4.9); ALBUMIN/GLOBULIN RATIO 0.87; ALKALINE PHOSPHATASE 94 IU/L (42-121); ANION GAP 7 (5-13); ASPARTATE AMINO TRANSFERASE 41 IU/L (15-46); BLOOD UREA NITROGEN 13 mg/dl (7-20); CALCIUM 8.5 mg/dl (8.4-10.2); CARBON DIOXIDE 24 mmol/L (21-31); CHLORIDE 110 mmol/L (97-110); CREATININE 0.72 mg/dl (0.44-1.00); GLUCOSE 92 mg/dl (70-220); POTASSIUM 3.5 mmol/L (3.5-5.1); SODIUM 141 mmol/L (135-144); TOTAL PROTEIN 6.2 g/dl (6.1-8.1)
[2018-08-21 06:55] LABS: CREATINE KINASE 336 IU/L (23-200)
[2018-08-21] MEDS: PRAMIPEXOLE 1 MG TAB PO ×3 (08:13→20:03)
[2018-08-21] MEDS: ASCORBIC ACID 500 MG TAB PO (08:13)
[2018-08-21] MEDS: AMLODIPINE 5 MG TAB PO (08:14)
[2018-08-21] MEDS: BENZTROPINE 1 MG TAB PO ×2 (08:14→20:03)
[2018-08-21] MEDS: POTASSIUM CHLORIDE 20 MEQ POWDER FOR ORAL SOLN PO (10:06)
[2018-08-21] MEDS: DOCUSATE SODIUM 100 MG CAP PO (20:03)
[2018-08-21] MEDS: ATORVASTATIN 10 MG TAB PO (20:04)
[2018-08-21] MEDS: CARBIDOPA/LEVODOPA (25/250) TAB PO (22:19)
[2018-08-22] MEDS: CARBIDOPA/LEVODOPA (25/100) TAB PO ×4 (05:48→17:15)
[2018-08-22 06:14] LABS: ADD MAN DIFF? NO
[2018-08-22 06:25] LABS: WHITE BLOOD COUNT 4.7 10^3/ul (4.8-10.8)
[2018-08-22 06:25] LABS: BASOPHILS % 0.4 % (0.0-2.0); EOSINOPHILS # 0.2 10^3/ul (0.0-0.5); EOSINOPHILS % 4.3 % (0.0-7.0); HEMATOCRIT 28.6 % (37.0-47.0); HEMOGLOBIN 8.5 g/dl (12.0-16.0); LYMPHOCYTES # 1.1 10^3/ul (0.8-2.9); LYMPHOCYTES % 23.5 % (15.0-51.0); MEAN CORPUSCULAR HEMOGLOBIN 27.3 pg (29.0-33.0); MEAN CORPUSCULAR HGB CONC 29.7 g/dl (32.0-37.0); MEAN PLATELET VOLUME 8.4 fl (7.4-10.4); MONOCYTE # 0.6 10^3/ul (0.3-0.9); MONOCYTES % 13.5 % (0.0-11.0); NEUTROPHIL # 2.7 10^3/ul (1.6-7.5); NEUTROPHILS % 57.7 % (39.0-77.0); PLATELET COUNT 456 10^3/UL (140-415); RED BLOOD COUNT 3.11 10^6/ul (4.20-5.40); RED CELL DISTRIBUTION WIDTH 15.7 % (11.5-14.5)
[2018-08-22 06:47] LABS: ALANINE AMINOTRANSFERASE 7 IU/L (13-69); ALBUMIN 3.4 g/dl (3.3-4.9); ALBUMIN/GLOBULIN RATIO 0.87; ALKALINE PHOSPHATASE 125 IU/L (42-121); ANION GAP 6 (5-13); ASPARTATE AMINO TRANSFERASE 37 IU/L (15-46); BILIRUBIN,INDIRECT 0.3 mg/dl (0-1.1); BILIRUBIN,TOTAL 0.3 mg/dl (0.2-1.3); BLOOD UREA NITROGEN 6 mg/dl (7-20); CALCIUM 9.1 mg/dl (8.4-10.2); CARBON DIOXIDE 26 mmol/L (21-31); CHLORIDE 111 mmol/L (97-110); CREATININE 0.64 mg/dl (0.44-1.00); GLUCOSE 90 mg/dl (70-220); POTASSIUM 3.5 mmol/L (3.5-5.1); SODIUM 143 mmol/L (135-144); TOTAL PROTEIN 7.3 g/dl (6.1-8.1)
[2018-08-22] MEDS: PRAMIPEXOLE 1 MG TAB PO ×3 (08:36→21:09)
[2018-08-22] MEDS: AMLODIPINE 5 MG TAB PO (08:37)
[2018-08-22] MEDS: BENZTROPINE 1 MG TAB PO (08:37)
[2018-08-22] MEDS: ASCORBIC ACID 500 MG TAB PO (08:37)
[2018-08-22] MEDS: POTASSIUM CHLORIDE 100 ML IVPB ×2 (10:42→12:54)
[2018-08-22] MEDS ORDERED: CARBIDOPA/LEVODOPA (25/100) TAB PO (19:30)
[2018-08-22] MEDS: ATORVASTATIN 10 MG TAB PO (21:09)
[2018-08-22] MEDS: CARBIDOPA/LEVODOPA (25/250) TAB PO (21:09)
[2018-08-22] MEDS: DOCUSATE SODIUM 100 MG CAP PO (21:09)
[2018-08-23] MEDS: CARBIDOPA/LEVODOPA (25/100) TAB PO ×4 (05:05→17:04)
[2018-08-23 06:09] LABS: ADD MAN DIFF? NO
[2018-08-23 06:17] LABS: BASOPHILS % 0.4 % (0.0-2.0); EOSINOPHILS # 0.2 10^3/ul (0.0-0.5); EOSINOPHILS % 3.4 % (0.0-7.0); HEMATOCRIT 32.7 % (37.0-47.0); HEMOGLOBIN 9.5 g/dl (12.0-16.0); LYMPHOCYTES # 0.9 10^3/ul (0.8-2.9); LYMPHOCYTES % 15.5 % (15.0-51.0); MEAN CORPUSCULAR HEMOGLOBIN 26.9 pg (29.0-33.0); MEAN CORPUSCULAR HGB CONC 29.1 g/dl (32.0-37.0); MEAN CORPUSCULAR VOLUME 92.6 fl (82.0-101.0); MEAN PLATELET VOLUME 8.4 fl (7.4-10.4); MONOCYTE # 0.6 10^3/ul (0.3-0.9); MONOCYTES % 11.3 % (0.0-11.0); NEUTROPHIL # 3.9 10^3/ul (1.6-7.5); NEUTROPHILS % 68.9 % (39.0-77.0); PLATELET COUNT 493 10^3/UL (140-415); RED BLOOD COUNT 3.53 10^6/ul (4.20-5.40)
[2018-08-23 06:17] LABS: WHITE BLOOD COUNT 5.6 10^3/ul (4.8-10.8)
[2018-08-23 06:59] LABS: ALANINE AMINOTRANSFERASE 11 IU/L (13-69); ALBUMIN 3.8 g/dl (3.3-4.9); ALBUMIN/GLOBULIN RATIO 0.88; ALKALINE PHOSPHATASE 129 IU/L (42-121); ANION GAP 9 (5-13); ASPARTATE AMINO TRANSFERASE 33 IU/L (15-46); BILIRUBIN,INDIRECT 0.3 mg/dl (0-1.1); BILIRUBIN,TOTAL 0.3 mg/dl (0.2-1.3); BLOOD UREA NITROGEN 5 mg/dl (7-20); CALCIUM 9.4 mg/dl (8.4-10.2); CARBON DIOXIDE 30 mmol/L (21-31); CHLORIDE 104 mmol/L (97-110); GLUCOSE 88 mg/dl (70-220); POTASSIUM 3.4 mmol/L (3.5-5.1); SODIUM 143 mmol/L (135-144); TOTAL PROTEIN 8.1 g/dl (6.1-8.1)
[2018-08-23] MEDS: PRAMIPEXOLE 1 MG TAB PO ×3 (08:21→20:35)
[2018-08-23] MEDS: ASCORBIC ACID 500 MG TAB PO (08:21)
[2018-08-23] MEDS: AMLODIPINE 5 MG TAB PO (08:22)
[2018-08-23] MEDS ORDERED: POTASSIUM CHLORIDE 100 ML IVPB (10:00)
[2018-08-23] MEDS: POTASSIUM CHLORIDE 20 MEQ in DEXTROSE 5% 100 ML IV ×2 (10:37→13:22)
[2018-08-23] MEDS: BISACODYL (EC) 5 MG TAB PO (17:04)
[2018-08-23] MEDS: DOCUSATE SODIUM 100 MG CAP PO (20:35)
[2018-08-23] MEDS: ATORVASTATIN 10 MG TAB PO (20:35)
[2018-08-23] MEDS: CARBIDOPA/LEVODOPA (25/250) TAB PO (21:37)
[2018-08-24] MEDS: CARBIDOPA/LEVODOPA (25/100) TAB PO ×5 (02:47→17:22)
[2018-08-24 06:32] LABS: ADD MAN DIFF? NO
[2018-08-24 06:41] LABS: BASOPHILS % 0.2 % (0.0-2.0); EOSINOPHILS # 0.2 10^3/ul (0.0-0.5); EOSINOPHILS % 2.8 % (0.0-7.0); HEMATOCRIT 32.8 % (37.0-47.0); HEMOGLOBIN 9.6 g/dl (12.0-16.0); LYMPHOCYTES # 0.6 10^3/ul (0.8-2.9); LYMPHOCYTES % 10.1 % (15.0-51.0); MEAN CORPUSCULAR HEMOGLOBIN 26.6 pg (29.0-33.0); MEAN CORPUSCULAR HGB CONC 29.3 g/dl (32.0-37.0); MEAN CORPUSCULAR VOLUME 90.9 fl (82.0-101.0); MEAN PLATELET VOLUME 8.3 fl (7.4-10.4); MONOCYTE # 0.6 10^3/ul (0.3-0.9); MONOCYTES % 10.1 % (0.0-11.0); NEUTROPHIL # 4.6 10^3/ul (1.6-7.5); NEUTROPHILS % 76.1 % (39.0-77.0); PLATELET COUNT 473 10^3/UL (140-415); RED BLOOD COUNT 3.61 10^6/ul (4.20-5.40); RED CELL DISTRIBUTION WIDTH 16.3 % (11.5-14.5)
[2018-08-24 06:57] LABS: ALANINE AMINOTRANSFERASE 8 IU/L (13-69); ALBUMIN 3.6 g/dl (3.3-4.9); ALBUMIN/GLOBULIN RATIO 0.94; ALKALINE PHOSPHATASE 125 IU/L (42-121); ANION GAP 6 (5-13); ASPARTATE AMINO TRANSFERASE 26 IU/L (15-46); BILIRUBIN,INDIRECT 0.4 mg/dl (0-1.1); BILIRUBIN,TOTAL 0.4 mg/dl (0.2-1.3); BLOOD UREA NITROGEN 6 mg/dl (7-20); CALCIUM 9.6 mg/dl (8.4-10.2); CARBON DIOXIDE 28 mmol/L (21-31); CHLORIDE 106 mmol/L (97-110); CREATININE 0.63 mg/dl (0.44-1.00); GLUCOSE 94 mg/dl (70-220); SODIUM 140 mmol/L (135-144); TOTAL PROTEIN 7.4 g/dl (6.1-8.1)
[2018-08-24] MEDS: ASCORBIC ACID 500 MG TAB PO (08:42)
[2018-08-24] MEDS: AMLODIPINE 5 MG TAB PO (08:42)
[2018-08-24] MEDS: PRAMIPEXOLE 1 MG TAB PO ×3 (08:42→21:24)
[2018-08-24 10:10] LABS: OCCULT BLOOD STOOL NEGATIVE (NEGATIVE)
[2018-08-24] MEDS: ACETAMINOPHEN 325 MG TAB PO (17:26)
[2018-08-24] MEDS: CARBIDOPA/LEVODOPA (25/250) TAB PO (21:24)
[2018-08-24] MEDS: DOCUSATE SODIUM 100 MG CAP PO (21:24)
[2018-08-24] MEDS: ATORVASTATIN 10 MG TAB PO (21:24)
[2018-08-25] MEDS: CARBIDOPA/LEVODOPA (25/100) TAB PO ×4 (05:56→17:10)
[2018-08-25] MEDS: PRAMIPEXOLE 1 MG TAB PO ×3 (09:05→20:49)
[2018-08-25] MEDS: ASCORBIC ACID 500 MG TAB PO (09:06)
[2018-08-25] MEDS: AMLODIPINE 5 MG TAB PO (09:06)
[2018-08-25] MEDS: ACETAMINOPHEN 325 MG TAB PO (18:26)
[2018-08-25] MEDS: DOCUSATE SODIUM 100 MG CAP PO (20:49)
[2018-08-25] MEDS: ATORVASTATIN 10 MG TAB PO (20:49)
[2018-08-25] MEDS: CARBIDOPA/LEVODOPA (25/250) TAB PO (21:43)
[2018-08-26] MEDS: CARBIDOPA/LEVODOPA (25/100) TAB PO ×4 (06:14→17:13)
[2018-08-26] MEDS: PRAMIPEXOLE 1 MG TAB PO ×3 (09:43→20:52)
[2018-08-26] MEDS: ASCORBIC ACID 500 MG TAB PO (09:43)
[2018-08-26] MEDS: AMLODIPINE 5 MG TAB PO (09:44)
[2018-08-26] MEDS: DOCUSATE SODIUM 100 MG CAP PO (20:52)
[2018-08-26] MEDS: ATORVASTATIN 10 MG TAB PO (20:52)
[2018-08-26] MEDS: CARBIDOPA/LEVODOPA (25/250) TAB PO (20:52)
[2018-08-27 05:04] LABS: ADD MAN DIFF? NO
[2018-08-27 05:23] LABS: WHITE BLOOD COUNT 6.2 10^3/ul (4.8-10.8)
[2018-08-27 05:23] LABS: BASOPHILS % 0.3 % (0.0-2.0); EOSINOPHILS # 0.2 10^3/ul (0.0-0.5); EOSINOPHILS % 2.7 % (0.0-7.0); HEMATOCRIT 30.9 % (37.0-47.0); HEMOGLOBIN 9.1 g/dl (12.0-16.0); LYMPHOCYTES % 15.3 % (15.0-51.0); MEAN CORPUSCULAR HGB CONC 29.4 g/dl (32.0-37.0); MEAN CORPUSCULAR VOLUME 91.7 fl (82.0-101.0); MEAN PLATELET VOLUME 8.2 fl (7.4-10.4); MONOCYTE # 0.7 10^3/ul (0.3-0.9); MONOCYTES % 10.8 % (0.0-11.0); NEUTROPHIL # 4.4 10^3/ul (1.6-7.5); NEUTROPHILS % 70.4 % (39.0-77.0); PLATELET COUNT 463 10^3/UL (140-415); RED BLOOD COUNT 3.37 10^6/ul (4.20-5.40); RED CELL DISTRIBUTION WIDTH 16.4 % (11.5-14.5)
[2018-08-27 05:24] LABS: ANION GAP 8 (5-13); BLOOD UREA NITROGEN 9 mg/dl (7-20); CALCIUM 9.5 mg/dl (8.4-10.2); CARBON DIOXIDE 30 mmol/L (21-31); CHLORIDE 101 mmol/L (97-110); CREATININE 0.81 mg/dl (0.44-1.00); GLUCOSE 95 mg/dl (70-220); MAGNESIUM 1.8 mg/dl (1.7-2.5); PHOSPHORUS 3.8 mg/dl (2.5-4.9); POTASSIUM 3.7 mmol/L (3.5-5.1); SODIUM 139 mmol/L (135-144)
[2018-08-27] MEDS: CARBIDOPA/LEVODOPA (25/100) TAB PO ×3 (06:04→14:05)
[2018-08-27] MEDS: ASCORBIC ACID 500 MG TAB PO (08:53)
[2018-08-27] MEDS: AMLODIPINE 5 MG TAB PO (08:53)
[2018-08-27] MEDS: PRAMIPEXOLE 1 MG TAB PO ×2 (08:53→14:05)
== END 2018-08-27 14:30 | DRG 57 ==
LOC: 6WM 21:05 → E/R 19:16
PROVIDERS: Family Medicine
DX: G20 Parkinson's disease (principal); N17.9 Acute kidney failure, unspecified; R65.10 Systemic inflammatory response syndrome (SIRS) of non-infectious origin without acute organ dysfunction; G93.40 Encephalopathy, unspecified; C22.0 Liver cell carcinoma; I10 Essential (primary) hypertension; E78.5 Hyperlipidemia, unspecified; I25.2 Old myocardial infarction; E86.0 Dehydration; K74.60 Unspecified cirrhosis of liver; D64.9 Anemia, unspecified; R74.8 Abnormal levels of other serum enzymes; M24.419 Recurrent dislocation, unspecified shoulder; I25.10 Atherosclerotic heart disease of native coronary artery without angina pectoris; Z87.01 Personal history of pneumonia (recurrent); Z87.440 Personal history of urinary (tract) infections
CPT/HCPCS: 36415; 71045; 76705; 80048; 80053; 81001; 82270; 82550; 82553; 82962; 83605; 83690; 83735; 84100; 84443; 84484; 85014; 85018; 85025; 87040-91; 87086; 87400; 93005; 97162; 97167; 99285-25